=== PATIENT | male | born 1970 | race African-American/Black ===

== ENCOUNTER 2017-03-31 13:38 | Emergency (ER) | payer MEDICAID ==
[2017-03-31 13:40] VITALS: BP 163/93; PULSE 102; RESP 15; TEMP 98; O2SAT 98
--- NOTE | 2017-03-31 14:07 | PD ---
HPI Chief Complaint: Neuro Symptoms/ Deficits Time Seen by Provider: 14:05 Travel History International Travel<30 days: No Contact w/Intl Traveler<30days: No Traveled to known affect area: No History of Present Illness HPI 46 YO male presents to the ED for evaluation of ~18 month history of "head pressure," intermittent periods of "blanking out" or "spacing out" and memory problems. The patient endorses vision changes with recent diagnosis of legal blindness. He denies fever, chills, headache, neck pain, recent trauma, unilateral weakness, slurred speech, facial droop. Denies history of DM, HTN. Denies family history of PVD. Endorses distant history of alcohol and powder cocaine use. PFSH Past Medical History Headaches: Yes Respiratory: Yes Social History Alcohol Use: No Tobacco Use: No Substance Use: No Allergies-Medications (Allergen,Severity, Reaction): Coded Allergies: Contrast Media (Verified Allergy, Severe, SOB, SWELLING, 09/12/16) Iodinated Contrast Media (Verified Allergy, Severe, SOB, SWELLING, 09/12/16 ) Shellfish (Verified Allergy, Severe, LIPS SWELL, 09/12/16) Reported Meds & Prescriptions Reported Meds & Active Scripts Active Review of Systems Except as stated in HPI: all other systems reviewed are Neg Physical Exam Narrative GENERAL: Well-nourished, well-developed black male in no acute distress. SKIN: Warm and dry. HEAD: Normocephalic. Atraumatic. EYES: No scleral icterus. No injection or drainage. PERRLA. EOMI. decreased peripheral vision on testing by confrontation. ENT: [place] tympanic membranes bilaterally. Nasal mucosa is moist. Oropharynx without erythema, edema or exudate. NECK: Supple, trachea midline. No JVD or lymphadenopathy. CARDIOVASCULAR: Regular rate and rhythm without murmurs, gallops, or rubs. 2+ DP and radial pulses bilaterally. RESPIRATORY: Breath sounds clear and equal bilaterally. No accessory muscle use. GASTROINTESTINAL: Abdomen soft, non-tender, nondistended. + Bowel sounds MUSCULOSKELETAL: No cyanosis, or edema. Patient is a laboratory moves extremity spontaneously. NEUROLOGICAL: Awake and alert. Cranial nerves II through XII intact. Motor and sensory grossly within normal limits. Five out of 5 muscle strength in all muscle groups. Normal speech. BACK: Nontender without obvious deformity. No CVA tenderness. Data Data Last Documented VS Vital Signs Date Time Temp Pulse Resp B/P Pulse Ox O2 Delivery O2 Flow Rate FiO2 03/31/17 14:21 16 98 Room Air 03/31/17 13:40 98.0 102 163/93 Orders Complete Blood Count With Diff (03/31/17 14:07) Comprehensive Metabolic Panel (03/31/17 14:07) Prothrombin Time / Inr (Pt) (03/31/17 14:07) Act Partial Throm Time (Ptt) (03/31/17 14:07) Urinalysis - C+S If Indicated (03/31/17 14:07) Iv Access Insert/Monitor (03/31/17 14:07) Sodium Chloride 0.9% Flush (Ns Flush) (03/31/17 14:15) Alcohol (Ethanol) (03/31/17 14:07) Drug Screen, Random Urine (03/31/17 14:07) Ct Brain W/O Iv Contrast(Rout) (03/31/17 ) Magnesium (Mg) (03/31/17 14:07) Thyroid Stimulating Hormone (03/31/17 14:07) Labs Laboratory Tests Test 03/31/17 03/31/17 14:15 15:45 White Blood Count 3.9 TH/MM3 Red Blood Count 5.04 MIL/MM3 Hemoglobin 14.8 GM/DL Hematocrit 43.9 % Mean Corpuscular Volume 87.2 FL Mean Corpuscular Hemoglobin 29.4 PG Mean Corpuscular Hemoglobin 33.7 % Concent Red Cell Distribution Width 14.2 % Platelet Count 235 TH/MM3 Mean Platelet Volume 9.1 FL Neutrophils (%) (Auto) 50.3 % Lymphocytes (%) (Auto) 38.5 % Monocytes (%) (Auto) 9.7 % Eosinophils (%) (Auto) 0.9 % Basophils (%) (Auto) 0.6 % Neutrophils # (Auto) 1.9 TH/MM3 Lymphocytes # (Auto) 1.5 TH/MM3 Monocytes # (Auto) 0.4 TH/MM3 Eosinophils # (Auto) 0.0 TH/MM3 Basophils # (Auto) 0.0 TH/MM3 CBC Comment DIFF FINAL Differential Comment Prothrombin Time 10.6 SEC Prothromb Time International 1.0 RATIO Ratio Activated Partial 26.8 SEC Thromboplast Time Sodium Level 142 MEQ/L Potassium Level 4.0 MEQ/L Chloride Level 108 MEQ/L Carbon Dioxide Level 29.7 MEQ/L Anion Gap 4 MEQ/L Blood Urea Nitrogen 10 MG/DL Creatinine 1.16 MG/DL Estimat Glomerular Filtration 83 ML/MIN Rate Random Glucose 127 MG/DL Calcium Level 8.7 MG/DL Magnesium Level 1.9 MG/DL Total Bilirubin 0.3 MG/DL Aspartate Amino Transf 23 U/L (AST/SGOT) Alanine Aminotransferase 35 U/L (ALT/SGPT) Alkaline Phosphatase 68 U/L Total Protein 7.2 GM/DL Albumin 3.7 GM/DL Thyroid Stimulating Hormone 1.550 uIU/ML 3rd Gen Ethyl Alcohol Level LESS THAN 3 MG/DL Urine Opiates Screen NEG Urine Barbiturates Screen NEG Urine Amphetamines Screen NEG Urine Benzodiazepines Screen NEG Urine Cocaine Screen NEG Urine Cannabinoids Screen NEG MDM Medical Decision Making Medical Screen Exam Complete: Yes Emergency Medical Condition: Yes Differential Diagnosis Absence seizure versus brain mass versus epilepsy versus peripheral vascular disease versus Narrative Course 46 YO male presents to the ED for evaluation of ~18 month history of "head pressure," intermittent periods of "blanking out" or "spacing out" and memory problems. The patient endorses vision changes with recent diagnosis of legal blindness. He denies fever, chills, headache, neck pain, recent trauma, unilateral weakness, slurred speech, facial droop,history of DM, HTN, family history of PVD. Endorses distant history of alcohol and powder cocaine use. Vitals reviewed. Physical exam is reassuring. No focal neural deficits. Decreased peripheral vision on testing by confrontation. No concerning abnormalities of the CBC, CMP, Coags, UA. Tox and alcohol screen negative. CT negative for acute process. I discussed the results of workup with the patient and his . Recommended that they follow up with the primary care provider as planned, return to the ED for worsening symptoms. They indicated understanding of instructions and are agreeable to the care plan. Patient is stable and discharged home. Diagnosis Primary Impression: Spells of decreased attentiveness Additional Impression: Spells of speech arrest Referrals: Primary Care Physician Additional Instructions: Rest, hydrate. Return to normal, gentle activity as tolerated. Follow up with the primary care provider as planned. Return to the ED for any urgent or emergent medical condition. Disposition: 01 DISCHARGE HOME Condition: Stable Alix Oro Mar 31, 2017 14:07
[2017-03-31] MEDS ORDERED: SODIUM CHLORIDE 0.9% FLUSH 10 ML FLUSH IV FLUSH PRN (14:15)
[2017-03-31 14:31] LABS: AUTOMATED NEUTROPHIL # 1.9 TH/MM3 (1.8-7.7); BASOPHIL % 0.6 % (0.0-2.0); EOSINOPHIL % 0.9 % (0.0-4.0); HEMATOCRIT 43.9 % (39.0-51.0); HEMO FLAGS DIFF FINAL; LYMPH % 38.5 % (9.0-44.0); LYMPHOCYTE # 1.5 TH/MM3 (1.0-4.8); MEAN CELL VOLUME 87.2 FL (80.0-100.0); MEAN CORPUSCULAR HEMOGLOBIN 29.4 PG (27.0-34.0); MEAN CORPUSCULAR HGB CONC 33.7 % (32.0-36.0); MONO % 9.7 % (0.0-8.0); NEUT % 50.3 % (16.0-70.0); PLATELET COUNT 235 TH/MM3 (150-450); RED BLOOD COUNT 5.04 MIL/MM3 (4.50-5.90); RED CELL DISTRIBUTION WIDTH 14.2 % (11.6-17.2); WHITE BLOOD COUNT 3.9 TH/MM3 (4.0-11.0)
[2017-03-31 14:38] LABS: APTT (PATIENT) 26.8 SEC (24.3-30.1); PROTHROMBIN TIME - PATIENT 10.6 SEC (9.8-11.6)
[2017-03-31 14:47] LABS: ALT (GPT) 35 U/L (12-78); ANION GAP 4 MEQ/L (5-15); AST (GOT) 23 U/L (15-37); BICARBONATE 29.7 MEQ/L (21.0-32.0); BLOOD UREA NITROGEN 10 MG/DL (7-18); CHLORIDE 108 MEQ/L (98-107); GLOMERULAR FILTRATION RATE 83 ML/MIN (>89); MAGNESIUM 1.9 MG/DL (1.5-2.5); SODIUM (NA) 142 MEQ/L (136-145)
[2017-03-31 14:57] LABS: ALKALINE PHOSPHATASE 68 U/L (45-117); TOTAL BILIRUBIN ADULT 0.3 MG/DL (0.2-1.0)
--- NOTE | 2017-03-31 16:00 | RADRPT ---
EXAM DATE/TIME: 03/31/2017 15:26 [facility] COMPARISON: CT BRAIN W/O CONTRAST, July 02, 2012, 11:45. INDICATIONS : Left sided cephalgia, altered mental status and impaired peripheral vision today. RADIATION DOSE: 39.81 CTDIvol (mGy) MEDICAL HISTORY : None SURGICAL HISTORY : None. ENCOUNTER: Initial ACUITY: 1 day PAIN SCALE: 6/10 LOCATION: Left head TECHNIQUE: Multiple contiguous axial images were obtained of the head. Using automated exposure control and adj ustment of the mA and/or kV according to patient size, radiation dose was kept as low as reasonably a chievable to obtain optimal diagnostic quality images. DICOM format image data is available electro nically for review and comparison. FINDINGS: CEREBRUM: The ventricles are normal for age. No evidence of midline shift, mass lesion, hemorrhage or acute in farction. No extra-axial fluid collections are seen. POSTERIOR FOSSA: The cerebellum and brainstem are intact. The 4th ventricle is midline. The cerebellopontine angle i s unremarkable. EXTRACRANIAL: The visualized portion of the orbits is intact. SKULL: The calvaria is intact. No evidence of skull fracture. CONCLUSION: Normal examination. Abdi Ruelas MD on March 31, 2017 at 15:57 Board Certified Radiologist. This report was verified electronically.
[2017-03-31 16:37] LABS: AMPHETAMINE, URINE NEG (NEG); BARBITURATES, URINE NEG (NEG); COCAINE, URINE NEG (NEG)
[2017-03-31 16:42] LABS: BLOOD, URINE NEG (NEG); COMMENT (UR) CULT NOT INDICATED; CULTURE IF INDICATED CULT NOT INDICATED; GLUCOSE,URINE NEG (NEG); KETONE, URINE NEG (NEG); MUCUS URINE FEW /lpf (OCC); NITRITE,URINE NEG (NEG); SQUAMOUS EPITHELIAL CELL URINE <1 /hpf (0-5); URINE COLOR YELLOW (YELLW/STRAW)
== END 2017-03-31 16:40 | disposition home or self-care (01) ==
LOC: NEPD 13:38
DX: R41.840 Attention and concentration deficit (principal); R47.89 Other speech disturbances; R51 Headache; H54.8 Legal blindness, as defined in USA
CPT/HCPCS: 70450; 80053; 80307; 81001; 83735; 84443; 85025; 85610; 85730

== ENCOUNTER 2017-04-03 10:37 | Observation (INO) | payer MEDICAID ==
[2017-04-03] VITALS (10 sets, daily range): BP systolic 125–141; BP diastolic 66–89; PULSE 66–97; RESP 16–20; TEMP 97.7–98.9; O2SAT 96–98
[~2017-04-03] VITALS: Ht 170.2 cm; Wt 108.0 kg
[2017-04-03] MEDS ORDERED: ALBUAER3 INH (11:04)
[2017-04-03] MEDS ORDERED: SYMB160A INH (11:04)
[2017-04-03] MEDS ORDERED: SYMB80AE INH (11:04)
--- NOTE | 2017-04-03 11:15 | PD ---
HPI Chief Complaint: Seizure Time Seen by Provider: 10:54 Travel History International Travel<30 days: No Contact w/Intl Traveler<30days: No Traveled to known affect area: No History of Present Illness HPI This is a 46-year-old male with a history of diabetes mellitus, hypertension, legal blindness, who presents here with complaints of a left sided headache. The patient was seen on the of this month and told that he would likely having Seizures. At the Time of His Evaluation on the , He Was Presenting with Complaints of Episodes Where He Became Unresponsive. He Had CT Scan and Metabolic Workup at That Time It Was Essentially Negative. The Patient Reports Today That He Is Having Left Sided Headache. He Denies Any New Blurry Vision. He Denies Any Weakness of His Extremities. PFSH Past Medical History Diminished Hearing: No Headaches: Yes Neurologic: Yes (Absence seizures) Respiratory: Yes (BRONCHITIS) Seizures: Yes (Absence seizures) Tetanus Vaccination: > 5 Years Influenza Vaccination: No Past Surgical History Surgical History: No Previous Surgery Social History Alcohol Use: No Tobacco Use: No Substance Use: No (PT DENIES) Allergies-Medications (Allergen,Severity, Reaction): Coded Allergies: Contrast Media (Verified Allergy, Severe, SOB, SWELLING, 04/03/17) Iodinated Contrast Media (Verified Allergy, Severe, SOB, SWELLING, 04/03/17 ) Shellfish (Verified Allergy, Severe, LIPS SWELL, 04/03/17) Reported Meds & Prescriptions Reported Meds & Active Scripts Active Reported Symbicort Inh (Budesonide/Formoterol Fumarate) 160-4.5 Mcg/Act Aero 1 Puff INH Q12HR Proair Hfa 8.5 GM Inh (Albuterol Sulfate) 90 Mcg/Act Aer 2 Puff INH Q4-6H PRN 108 mcg/actuation Review of Systems Except as stated in HPI: all other systems reviewed are Neg Eyes: Positive: Blurred Vision, No: Photophobia HENT: Positive: Headaches, No: Neck Stiffness, Neck Pain Cardiovascular: No: Chest Pain or Discomfort, Palpitations Respiratory: No: Cough, Shortness of Breath Gastrointestinal: No: Nausea, Vomiting, Abdominal Pain Genitourinary: No: Urgency, Frequency Musculoskeletal: No: Weakness, Pain Neurologic: Positive: Headache, Change in Mentation (episodes where he does not respond but appears to be awake), No: Weakness, Dizziness, Seizures Psychiatric: No: Disorder of Thought, Substance Abuse Physical Exam Narrative GENERAL: Well-developed well-nourished male in no acute respiratory distress. SKIN: Focused skin assessment warm/dry. HEAD: Atraumatic. Normocephalic. EYES: No scleral icterus. No injection or drainage. ENT: No nasal bleeding or discharge. Mucous membranes pink and moist. NECK: Trachea midline. Supple. CARDIOVASCULAR: Regular rate and rhythm. RESPIRATORY: No accessory muscle use. Clear to auscultation. Breath sounds equal bilaterally. GASTROINTESTINAL: Abdomen soft, non-tender, nondistended. Hepatic and splenic margins not palpable. MUSCULOSKELETAL: No obvious deformities. No clubbing. No cyanosis. No edema. NEUROLOGICAL: Awake and alert. No obvious cranial nerve deficits. Motor grossly within normal limits. Normal speech. PSYCHIATRIC: Appropriate mood and affect; insight and judgment normal. Data Data Last Documented VS Vital Signs Date Time Temp Pulse Resp B/P Pulse Ox O2 Delivery O2 Flow Rate FiO2 04/03/17 12:21 66 20 132/83 98 Room Air 04/03/17 10:54 2 04/03/17 10:46 97.7 Orders Complete Blood Count With Diff (04/03/17 11:03) Basic Metabolic Panel (Bmp) (04/03/17 11:03) Ct Brain W/O Iv Contrast(Rout) (04/03/17 11:03) Iv Access Insert/Monitor (04/03/17 11:03) Ecg Monitoring (04/03/17 11:03) Oximetry (04/03/17 11:03) Labs Laboratory Tests Test 04/03/17 11:00 White Blood Count 3.7 TH/MM3 Red Blood Count 5.19 MIL/MM3 Hemoglobin 15.6 GM/DL Hematocrit 45.3 % Mean Corpuscular Volume 87.2 FL Mean Corpuscular Hemoglobin 30.0 PG Mean Corpuscular Hemoglobin 34.4 % Concent Red Cell Distribution Width 13.8 % Platelet Count 223 TH/MM3 Mean Platelet Volume 8.9 FL Neutrophils (%) (Auto) 36.8 % Lymphocytes (%) (Auto) 47.8 % Monocytes (%) (Auto) 12.6 % Eosinophils (%) (Auto) 2.0 % Basophils (%) (Auto) 0.8 % Neutrophils # (Auto) 1.4 TH/MM3 Lymphocytes # (Auto) 1.8 TH/MM3 Monocytes # (Auto) 0.5 TH/MM3 Eosinophils # (Auto) 0.1 TH/MM3 Basophils # (Auto) 0.0 TH/MM3 CBC Comment DIFF FINAL Differential Comment Sodium Level 140 MEQ/L Potassium Level 4.2 MEQ/L Chloride Level 106 MEQ/L Carbon Dioxide Level 28.4 MEQ/L Anion Gap 6 MEQ/L Blood Urea Nitrogen 17 MG/DL Creatinine 1.18 MG/DL Estimat Glomerular Filtration 81 ML/MIN Rate Random Glucose 110 MG/DL Calcium Level 8.3 MG/DL MDM Medical Decision Making Medical Screen Exam Complete: Yes Emergency Medical Condition: Yes Differential Diagnosis Migraine variant versus syncope versus absence seizures Narrative Course 46-year-old male presents after having an episode of left sided headache. The patient's had multiple episodes where he is decreased level of consciousness. The patient was given a possible diagnosis of absence seizure last visit. He has had no formal EEG. He's had no formal syncopal workup. I recommended we bring the patient under observation and have a syncope workup. I also recommend a possible EEG to rule out any abnormal wave patterns. The patient is amenable to this. He does have a history of migraine headaches for which she was taking Inderal as a young man. He states that they stopped coming on and they took him off the Inderal. He does state that the headache that he sprints today with similar to that when he had his migraines. Diagnosis Primary Impression: syncope versus atypical seizure. Additional Impression: Cephalgia Cirilo Pulido MD Apr 03, 2017 11:15
[2017-04-03 11:28] LABS: AUTOMATED NEUTROPHIL # 1.4 TH/MM3 (1.8-7.7); BASOPHIL % 0.8 % (0.0-2.0); EOSINOPHIL # 0.1 TH/MM3 (0-0.4); HEMATOCRIT 45.3 % (39.0-51.0); HEMO FLAGS DIFF FINAL; LYMPH % 47.8 % (9.0-44.0); LYMPHOCYTE # 1.8 TH/MM3 (1.0-4.8); MEAN CELL VOLUME 87.2 FL (80.0-100.0); MEAN CORPUSCULAR HGB CONC 34.4 % (32.0-36.0); MONO % 12.6 % (0.0-8.0); NEUT % 36.8 % (16.0-70.0); PLATELET COUNT 223 TH/MM3 (150-450); RED BLOOD COUNT 5.19 MIL/MM3 (4.50-5.90); RED CELL DISTRIBUTION WIDTH 13.8 % (11.6-17.2); WHITE BLOOD COUNT 3.7 TH/MM3 (4.0-11.0)
--- NOTE | 2017-04-03 11:39 | RADRPT ---
EXAM DATE/TIME: 04/03/2017 11:26 [facility] COMPARISON: CT BRAIN W/O CONTRAST, March 31, 2017, 15:26. INDICATIONS : Possible seizure. Left head presssure. RADIATION DOSE: 39.11 CTDIvol (mGy) MEDICAL HISTORY : None SURGICAL HISTORY : None. ENCOUNTER: Initial ACUITY: 1 day PAIN SCALE: 3/10 LOCATION: Left cranial TECHNIQUE: Multiple contiguous axial images were obtained of the head. Using automated exposure control and adj ustment of the mA and/or kV according to patient size, radiation dose was kept as low as reasonably a chievable to obtain optimal diagnostic quality images. DICOM format image data is available electro nically for review and comparison. FINDINGS: CEREBRUM: The ventricles are normal for age. No evidence of midline shift, mass lesion, hemorrhage or acute in farction. No extra-axial fluid collections are seen. POSTERIOR FOSSA: The cerebellum and brainstem are intact. The 4th ventricle is midline. The cerebellopontine angle i s unremarkable. EXTRACRANIAL: The visualized portion of the orbits is intact. SKULL: The calvaria is intact. No evidence of skull fracture. CONCLUSION: No acute disease. Nelson Bravo MD on April 03, 2017 at 11:36 Board Certified Radiologist. This report was verified electronically.
[2017-04-03 11:43] LABS: BICARBONATE 28.4 MEQ/L (21.0-32.0); POTASSIUM 4.2 MEQ/L (3.5-5.1)
[2017-04-03] MEDS ORDERED: SODIUM CHLORIDE 0.9% FLUSH 10 ML FLUSH IV FLUSH PRN (13:00)
[2017-04-03] MEDS ORDERED: ONDANSETRON HCL 4 MG/2 ML VIAL IVP PRN (13:00)
[2017-04-03] MEDS ORDERED: MAGNESIUM HYDROXIDE SUSP 30 ML CUP PO PRN (13:00)
[2017-04-03] MEDS ORDERED: SENNOSIDES 8.6 MG TAB PO PRN (13:00)
[2017-04-03] MEDS ORDERED: LACTULOSE SYRUP 20 GM/30 ML CUP PO PRN (13:00)
[2017-04-03] MEDS ORDERED: BISACODYL 10 MG SUPP RECTAL PRN (13:00)
[2017-04-03] MEDS ORDERED: NALOXONE HCL 0.4 MG/ML AMP IV PRN (13:00)
--- NOTE | 2017-04-03 13:20 | HHI.HP ---
[facility] Stefan [facility]anches Admission Diagnosis Diagnoses: (1) Cephalgia (2) Spells of decreased attentiveness Chief Complaint: headache, unresponsive episodes Travel History International Travel<30 Days: No Contact w/Intl Traveler <30 Da: No Traveled to Known Affected Are: No History of Present Illness Written by Bessie Farah, acting as scribe for Dr. Sanders on 04/03/17 at 13: 05. 46-year-old male with history of childhood absence seizures, migraines, asthma, presents with headache and unresponsive episodes worsening over the past year. The patient's spouse is at bedside and assists with the history. She reports recently she has witnessed the patient "staring off into space" then a few seconds later his head will collapse to the side and he will appear to be sleeping. Upon awakening, the patient is typically confused and disoriented. Denies any tongue biting or urinary/bowel incontinence. Today the patient had just finished sexual intercourse when another episode occurred. He presented to the ER with complaints of headache located at the left frontal temporal area with photophobia but no nausea/vomiting. He has a history of migraines, previously on Inderal which controlled his migraines however he has now been off this medication for years. The patient also report worsening vision, with significantly decreased peripheral vision. He has seen an assistant secretary, star route mail driver, and is now being referred to another employee training specialist. The patient also reports seeing "flashes of lights" recently that go away on its own. He denies any chest pain, palpitations, shortness of breath, unilateral numbness/weakness, speech difficulties, or abdominal complaints. Review of Systems Except as stated in HPI: all other systems reviewed are Neg Past Family Social History Past Medical History Migraines Absence seizures Asthma Legally blind with loss of peripheral vision Past Surgical History No prior surgeries. Reported Medications Symbicort Inh (Budesonide/Formoterol Fumarate) 160-4.5 Mcg/Act Aero 1 Puff INH Q12HR Proair Hfa 8.5 GM Inh (Albuterol Sulfate) 90 Mcg/Act Aer 2 Puff INH Q4-6H PRN 108 mcg/actuation Allergies: Coded Allergies: Contrast Media (Verified Allergy, Severe, SOB, SWELLING, 04/03/17) Iodinated Contrast Media (Verified Allergy, Severe, SOB, SWELLING, 04/03/17 ) Shellfish (Verified Allergy, Severe, LIPS SWELL, 04/03/17) Active Ordered Medications Current Medications Medications (Trade) Dose Ordered Sig/[place] Route Start Time Stop Time Status Last Admin (NS 1000 ml Inj) 1,000 ml @ 100 mls/hr Q10H IV 04/03/17 12:56 04/03/17 13:37 (NS Flush) 2 ml UNSCH PRN IV FLUSH 04/03/17 13:00 (NS Flush) 2 ml BID IV FLUSH 04/03/17 21:00 (Zofran Inj) 4 mg Q6H PRN IVP 04/03/17 13:00 (Narcan Inj) 0.4 mg UNSCH PRN IV 04/03/17 13:00 (Paulina-Colace) 1 tab BID PO 04/03/17 21:00 (Milk Of Magnesia Liq) 30 ml Q12H PRN PO 04/03/17 13:00 (Senokot) 17.2 mg Q12H PRN PO 04/03/17 13:00 (Dulcolax Supp) 10 mg DAILY PRN RECTAL 04/03/17 13:00 (Lactulose Liq) 30 ml DAILY PRN PO 04/03/17 13:00 Family History Mother with glaucoma Grandmother with diabetes, glaucoma Aunt, Cousin with "blood clots" Social History Smoked tobacco [employer]s cigars 15/day for 10 years, quit 2 years ago Prior heavy alcohol use, daily drinker, quit 2 years ago Denies any illicit drug use Physical Exam Vital Signs Vital Signs Date Time Temp Pulse Resp B/P Pulse Ox O2 Delivery O2 Flow Rate FiO2 04/03/17 12:21 66 20 132/83 98 Room Air 04/03/17 11:44 74 20 132/86 98 Room Air 04/03/17 11:05 17 98 Room Air 04/03/17 10:54 71 16 98 Nasal Cannula 2 04/03/17 10:46 97.7 82 16 125/72 98 Physical Exam GENERAL: Well-nourished, well-developed middle aged AA male patient in NAD. SKIN: Warm and dry. No rash. HEAD: Normocephalic. Atraumatic. EYES: Pupils equal and round. No scleral icterus. No injection or drainage. ENT: No nasal bleeding or discharge. Mucous membranes pink and moist. NECK: Supple. Trachea midline. CARDIOVASCULAR: Regular rate and rhythm. S1, S2 noted. No murmur appreciated. RESPIRATORY: No accessory muscle use. Clear to auscultation. Breath sounds equal bilaterally. GASTROINTESTINAL: Abdomen soft, non-tender, nondistended. Normoactive bowel sounds x4. MUSCULOSKELETAL: No obvious deformities. Extremities without clubbing, cyanosis , or edema. NEUROLOGICAL: Awake and alert. No obvious cranial nerve deficits. Motor grossly within normal limits. 5/5 muscle strength in bilateral upper and lower extremities. Normal speech. PSYCHIATRIC: Appropriate mood and affect; insight and judgment normal. Laboratory Laboratory Tests Test 04/03/17 11:00 White Blood Count 3.7 Red Blood Count 5.19 Hemoglobin 15.6 Hematocrit 45.3 Mean Corpuscular Volume 87.2 Mean Corpuscular Hemoglobin 30.0 Mean Corpuscular Hemoglobin 34.4 Concent Red Cell Distribution Width 13.8 Platelet Count 223 Mean Platelet Volume 8.9 Neutrophils (%) (Auto) 36.8 Lymphocytes (%) (Auto) 47.8 Monocytes (%) (Auto) 12.6 Eosinophils (%) (Auto) 2.0 Basophils (%) (Auto) 0.8 Neutrophils # (Auto) 1.4 Lymphocytes # (Auto) 1.8 Monocytes # (Auto) 0.5 Eosinophils # (Auto) 0.1 Basophils # (Auto) 0.0 CBC Comment DIFF FINAL Differential Comment Sodium Level 140 Potassium Level 4.2 Chloride Level 106 Carbon Dioxide Level 28.4 Anion Gap 6 Blood Urea Nitrogen 17 Creatinine 1.18 Estimat Glomerular Filtration 81 Rate Random Glucose 110 Calcium Level 8.3 Result Diagram: 04/03/17 1100 04/03/17 1100 Imaging Last Impressions Head CT 04/03/17 1103 Signed Impressions: Service Date/Time: Monday, April 03, 2017 11:26 - CONCLUSION: No acute disease. Nelson Bravo MD Assessment and Plan Problem List: (1) Cephalgia ICD Code: R51 Status: Acute (2) Spells of decreased attentiveness ICD Code: R68.89 Status: Acute Assessment and Plan 46-year-old male with history of childhood absence seizures, migraines, asthma, presents with headache and unresponsive episodes worsening over the past year. Headache with Neurological Deficit and Unresponsive Episodes: unclear etiology, suspect seizures, however need to rule out other etiologies including narcolepsy vs syncope vs other. -Head CT images reviewed, no acute findings -Check EEG to eval for seizures -Check Brain MRI and head/neck MRA -Consult neurology -monitor neuro checks, seizure precautions, monitor on telemetry -continue IVF -pain control with tylenol and norco prn Asthma: chronic, does not appear to be in exacerbation -continue patient's symbicort bid and albuterol prn DVT Prophylaxis: teds/SCDs This note was transcribed by [email or web address] [Bessie Farah]. I, Dr. Ryan Sanders personally performed the history, physical exam, and medical decision making; and confirmed the accuracy of the information in the transcribed note. Authenticated by Dr. Ryan Sanders on 04/03/17 at 16:02. Discussed Condition With Patient, Patient's spouse, Bessie Rodriguez PA-C Apr 03, 2017 1:20 pm Ryan Sanders MD Apr 03, 2017 4:02 pm
[2017-04-03] MEDS: SODIUM CHLOR 0.9% 1000 ML INJ 1,000 ML IV SCH ×2 (13:37→22:56)
[2017-04-03] MEDS ORDERED: ALBUTEROL SULFATE 90 MCG/ACT HFA 18 GM INHALER INH PRN (14:15)
[2017-04-03] MEDS ORDERED: ACETAMINOPHEN 325 MG TAB PO PRN (14:15)
[2017-04-03] MEDS ORDERED: ACETAMINOPHEN/HYDROcodone 325 MG/5 MG TAB PO PRN (14:15)
[2017-04-03 15:19] LABS: BLOOD GAS BASE EXCESS 2.3 mmol/L (-2-2); BLOOD GAS HCO3 27 mmol/L (22-26); BLOOD GAS METHEMOGLOBIN 0.9 % (0-2); BLOOD GAS O2 HGB SATURATION 93 % (90-100); BLOOD GAS OXYGEN CONTENT 19.5 Vol % (12.0-20.0); BLOOD GAS PCO2 45 mmHg (38-42); BLOOD GAS PO2 76 mmHG (61-120); BLOOD GAS TOTAL HGB 14.9 G/DL (12.0-16.0); CRITICAL VALUE NO; DRAW SITE LT RADIAL; FIO2 21 %; NUMBER OF ARTERIAL PUNCTURES 1; STAT NO; TEMP CORR TO 98.6; ULNAR PULSE PRESENT
--- NOTE | 2017-04-03 18:07 | MB ---
cc: PEDRO MIRANDA DATE OF CONSULTATION: 04/03/2017 HISTORY OF PRESENT ILLNESS A 46-year-old right-handed man with some hypercholesterolemia, a long history of headaches when he was younger which seemed to go away on Inderal but came back about two years ago. He has what sounds like excessive daytime sleepiness, possibly some narcolepsy where he will fall asleep very easily, he cannot even watch a 30-minute TV show. Other times he seems to stare off about three times a day according to his , and that has been going on for several years but seems to be getting worse. When she first met him two years ago it seemed to be not so frequent. He has headaches almost everyday which are mild on the left side of his head and then occasionally get worse to be about a 7/10 with throbbing and some floaters, no nausea or vomiting. Those have come back about two years ago also. He is a very heavy snorer. He has had some vision loss where he is legally blind. Peripheral vision appears to have diminished. He did see an eye doctor and he is not sure what the diagnosis is but he is supposed to see an artificial intelligence specialist. He has some prescription glasses. He does notice at times he seems to lose a period of time. SOCIAL HISTORY He is not a smoker or a drinker. He quit about two years ago. Lives with his . He used to work construction. He is possibly disabled due to knee pain, chronic. FAMILY HISTORY Negative for cancer, seizure or stroke. REVIEW OF SYSTEMS He denied any hypertension, diabetes, AK, CABG, cardiac arrhythmia, stent, angioplasty, a-fib, Coumadin, renal, hepatic or pulmonary disease, thyroid disease, lupus, ulcer, cancer, seizure or stroke. ALLERGIES HE IS ALLERGIC TO CONTRAST MEDIA, IODINE, SHELLFISH. MEDICATIONS He is on Symbicort and some inhalers. History of bronchitis. PHYSICAL EXAMINATION VITAL SIGNS: 141/89, 20, 80, afebrile. NECK: There were no carotid bruits. HEART: Heart was regular rhythm. I did not detect a murmur. NEUROLOGIC: The pupils are equal. Visual begum - he does appear to be somewhat restricted peripherally but can count fingers more centrally. It looks like he has got a little bit of a strabismus on the left eye but with an inward inversion of the eye. Extraocular movements are intact without nystagmus. Face was symmetric with normal sensation. Tongue was midline. There is no drift. He had normal strength in upper and lower extremities bilaterally. DTRs are trace throughout. Toes downgoing bilaterally. Pinprick is intact throughout. He is not ataxic on [id number]. Speech is fluent. He is not aphasic, gives a good history. LABORATORY DATA CBC has been essentially normal, white count is 3.7. Urine drug screen is normal. UA was negative. Basic metabolic profile has been essentially normal except for a sugar of 110, calcium is low at 8.3. He had a CPK to 640 about a year ago. LDL cholesterol 153 approximately a year ago. Thyroid study normal here. Coags normal. IMAGING CAT scan of the brain done today was read as normal. IMPRESSION Probably it sounds like a history of migraine headaches. We can restart him on the Inderal which may help his high blood pressure a little bit. We will check some blood work and an EEG along with an MRI of the brain and an MR venogram and an MRA with the headaches. I think he may have sleep apnea, he needs a sleep study done, he might also have some narcolepsy. There is a slight hypodensity I note in the right frontal lobe peripherally although this may be an artifact, we will see how the MRI looks. We could consider having ophthalmology see him here. His pupils were so small I could not really see his disks well, and we need to make sure he does not have any papilledema causing his vision loss. As such he could use his eyes dilated here for that means, if we could get ophthalmology to stop by I think that would be a good thing. MD AMINAH Liu/BJNicole /2:49 PM /5:41 PM
--- NOTE | 2017-04-03 18:08 | RADRPT ---
EXAM DATE/TIME: 04/03/2017 17:39 [facility] COMPARISON: No previous studies available for comparison. INDICATIONS : Cephalgia. Seizures. Syncope. MEDICAL HISTORY : Diabetes mellitus type 2. Hypertension. SURGICAL HISTORY : None. ENCOUNTER: Subsequent ACUITY: 2 day PAIN SCORE: 0/10 LOCATION: head. Please note a normal MRA of the brain does not entirely exclude the possibility of a small aneurysm, nor the possibility of distal intracranial vessel disease. TECHNIQUE: MR venography of the brain was performed without contrast with multiplanar and 3D reconstructions. FINDINGS: The dural sinuses are patent and normal in appearance. The deep cerebral venous structures are patent and unremarkable. Major cortical surface veins are symmetric and patent. CONCLUSION: Normal study Abdi Cardenas MD on April 03, 2017 at 18:05 Board Certified Radiologist. This report was verified electronically.
--- NOTE | 2017-04-03 18:12 | RADRPT ---
EXAM DATE/TIME: 04/03/2017 17:39 [facility] COMPARISON: No previous studies available for comparison. INDICATIONS : Cephalgia. Seizure. Syncope. MEDICAL HISTORY : Diabetes mellitus type 2. Hypertension. SURGICAL HISTORY : None. ENCOUNTER: Subsequent ACUITY: 2 day PAIN SCORE: 0/10 LOCATION: head. Please note a normal MRA of the brain does not entirely exclude the possibility of a small aneurysm, nor the possibility of distal intracranial vessel disease. TECHNIQUE: 3D time of flight MRA was performed. Source images, multiplanar STS MIP, and 3D volume MIP reconstru ctions were reviewed. FINDINGS: There is excellent visualization of the major intracranial arteries out to the second-order branch ve ssels. There is no evidence for aneurysm, vessel truncation or stenosis, and no evidence for vascula r malformation. CONCLUSION: Normal examination. Abdi Cardenas MD on April 03, 2017 at 18:06 Board Certified Radiologist. This report was verified electronically.
[2017-04-03] MEDS ORDERED: GADODIAMIDE PF 287 MG/ML 20 ML VIAL (for RAD MRI) IV ONE (18:18)
--- NOTE | 2017-04-03 18:22 | RADRPT ---
EXAM DATE/TIME: 04/03/2017 17:39 [facility] COMPARISON: No previous studies available for comparison. INDICATIONS : Stenosis. CONTRAST: 20 cc Omniscan (gadodiamide) IV MEDICAL HISTORY : Diabetes mellitus type 2. Hypertension. SURGICAL HISTORY : None. ENCOUNTER: Subsequent ACUITY: 2 day PAIN SCORE: 0/10 LOCATION: neck. Percent stenosis is calculated using the diameter of the stenotic region over the diameter of the nor mal distal internal carotid artery. TECHNIQUE: Bolus infused MRA of the extracranial circulation was performed using a neurovascular coil. Post pro cessing was performed including rotating subvolume maximum intensity projections of each carotid geoff ry, rotating full volume maximum intensity projections of both carotid arteries, sagittal and coronal sliding thin slab reformations of each carotid artery, and left oblique sliding thin slab reformatio n through the aortic arch to include the origin of the arch branch vessels. FINDINGS: AORTIC ARCH: There is a three vessel origin of the great vessels from the aorta. No evidence of ostial narrowing. RIGHT CAROTID: The common carotid artery is intact. The carotid bulb has a normal configuration without ulceration or narrowing. The internal carotid artery lumen is smooth without stenosis. The external carotid ar mahendra is intact. LEFT CAROTID: The common carotid artery is intact. The carotid bulb has a normal configuration without ulceration or narrowing. The internal carotid artery lumen is smooth without stenosis. The external carotid ar mahendra is intact. VERTEBRALS: The vertebral arteries have a symmetric diameter. No stenotic lesions are seen. CONCLUSION: Normal examination. Abdi Cardenas MD on April 03, 2017 at 18:19 Board Certified Radiologist. This report was verified electronically.
--- NOTE | 2017-04-03 18:25 | RADRPT ---
EXAM DATE/TIME: 04/03/2017 17:39 [facility] COMPARISON: CT BRAIN W/O CONTRAST, April 03, 2017, 11:26. INDICATIONS : Cephalgia. Seizures. Syncope. CONTRAST: 20 cc Omniscan (gadodiamide) IV MEDICAL HISTORY : Diabetes mellitus type 2. Hypertension. SURGICAL HISTORY : None. ENCOUNTER: Subsequent ACUITY: 2 day PAIN SCORE: 0/10 LOCATION: head. TECHNIQUE: Multiplanar, multisequence MRI of the brain was performed both prior to and following the administrat ion of paramagnetic contrast. FINDINGS: CEREBRUM: The ventricles are normal for age. No evidence of midline shift, mass lesion, hemorrhage or acute in farction. No extraaxial fluid collections are seen. The pituitary gland and suprasellar cistern are normal in configuration. WHITE MATTER: No significant signal abnormalities are seen in the white matter. POSTERIOR FOSSA: The cerebellum and brainstem are intact. The 4th ventricle is midline. The cerebellopontine angle is unremarkable. The cerebellar tonsils are normal in position. DIFFUSION IMAGING: No focal areas of restricted diffusion are seen. No evidence of acute infarction. EXTRACRANIAL: The visualized portions of the orbits and paranasal sinuses are unremarkable. POST-CONTRAST: No abnormal areas of parenchymal or dural enhancement. No evidence of blood-brain barrier breakdown. CONCLUSION: Unremarkable exam with no evidence of hemorrhage, mass or infarction. Shelton Jalloh MD on April 03, 2017 at 18:21 Board Certified Radiologist. This report was verified electronically.
--- NOTE | 2017-04-03 19:19 | MG ---
cc: BARBARA CHADWICK M.D. Lab No: Date: 04/03/2017 Age: Sex: M Race: REQUESTING PHYSICIAN KATHY Ortez INTRODUCTION An EEG was obtained on this 46-year-old patient being evaluated for headaches and possible seizures. DESCRIPTION The patient is awake and asleep. This EEG shows alpha rhythms intermixed with beta activity bilaterally. There are some theta rhythms also bilaterally and some delta activity as well. At times the activity is intermixed with some sharp waves and this is maximum on the right. Intermittently there is sleep with sleepy spindles. There appears to be a rather quick entrance into sleep. When the patient is clearly fully awake there is still some mild theta activity but not as much. Photic stimulation and hyperventilation disclosed no change. INTERPRETATION This EEG shows mild slowing for the patient's age and this seems to be maximum on the right raising the possibility of right hemisphere structural abnormality. There are no epileptiform features in a distinct manner, though there are some sharp waves on the right more than left. Clinical correlation. Barbara Chadwick MD OFC/KK /6:52 PM /7:16 PM
[2017-04-03 21:28] LABS: HEMOGLOBIN A1b 0.9 %; HEMOGLOBIN Ao 84.9 %; HEMOGLOBIN P3 3.6 %
[2017-04-03] MEDS: BUDESONIDE-FORMOTEROL 160/4.5 MCG INHALER INH SCH (22:11)
[2017-04-03] MEDS: DOCUSATE SODIUM 50 MG/SENNA 8.6 MG TAB PO SCH (22:12)
[2017-04-03] MEDS: SODIUM CHLORIDE 0.9% FLUSH 10 ML FLUSH IV FLUSH SCH (22:13)
[2017-04-03] MEDS: DIVALPROEX SODIUM E.R. 500 MG TAB PO SCH (22:18)
[2017-04-03 22:35] LABS: TOTAL PROTEIN SPE 6.4 GM/DL (6.0-7.6)
[2017-04-03 22:48] LABS: CKMB 4.8 NG/ML (0.5-3.6)
[2017-04-04] VITALS (11 sets, daily range): BP systolic 114–138; BP diastolic 58–91; PULSE 59–87; RESP 16–20; TEMP 98–98.6; O2SAT 96–99
[2017-04-04 00:45] LABS: RHEUMATOID FACTOR TRIGGER LESS THAN 10.0 IU/ML (0.0-14.9)
[2017-04-04] MEDS: BUDESONIDE-FORMOTEROL 160/4.5 MCG INHALER INH SCH ×2 (07:32→21:46)
[2017-04-04] MEDS: SODIUM CHLOR 0.9% 1000 ML INJ 1,000 ML IV SCH ×2 (07:34→18:24)
[2017-04-04] MEDS: SODIUM CHLORIDE 0.9% FLUSH 10 ML FLUSH IV FLUSH SCH ×2 (07:35→21:00)
[2017-04-04] MEDS: DOCUSATE SODIUM 50 MG/SENNA 8.6 MG TAB PO SCH ×2 (07:35→21:46)
--- NOTE | 2017-04-04 08:12 | EKG ---
Date Performed: 04/03/2017 Time Performed: 10:50:34 PTAGE: 46 years EKG: Sinus rhythm WITH SINUS ARRHYTHMIA NORMAL ECG INTERPRETATION BASED ON A DEFAULT AGE OF 42 YEARS PREVIOUS TRACING : 01/21/2016 10.14 DOCTOR: Morro Guthrie Interpretating Date/Time 04/04/2017 08:05:07
[2017-04-04 08:19] LABS: AUTOMATED NEUTROPHIL # 1.1 TH/MM3 (1.8-7.7); BASOPHIL % 0.5 % (0.0-2.0); EOSINOPHIL # 0.1 TH/MM3 (0-0.4); EOSINOPHIL % 1.9 % (0.0-4.0); HEMATOCRIT 44.3 % (39.0-51.0); HEMO FLAGS DIFF FINAL; LYMPH % 60.2 % (9.0-44.0); LYMPHOCYTE # 2.6 TH/MM3 (1.0-4.8); MEAN CELL VOLUME 89.4 FL (80.0-100.0); MEAN CORPUSCULAR HEMOGLOBIN 28.6 PG (27.0-34.0); MONO % 11.3 % (0.0-8.0); NEUT % 26.1 % (16.0-70.0); PLATELET COUNT 192 TH/MM3 (150-450); RED BLOOD COUNT 4.95 MIL/MM3 (4.50-5.90); RED CELL DISTRIBUTION WIDTH 14.2 % (11.6-17.2); WHITE BLOOD COUNT 4.3 TH/MM3 (4.0-11.0)
--- NOTE | 2017-04-04 08:24 | HHI.PR ---
Subjective Remarks few spells yest of loc brief he has some awareness of it i started vpa last pm Objective Vital Signs Date Time Temp Pulse Resp B/P Pulse Ox O2 Delivery O2 Flow Rate FiO2 04/04/17 08:17 98.6 79 18 138/91 97 04/04/17 04:14 59 04/04/17 04:00 98.0 66 20 118/76 99 04/04/17 00:06 67 04/04/17 00:00 98.1 77 20 124/75 97 04/03/17 20:02 98.9 81 16 136/78 96 04/03/17 20:01 78 04/03/17 17:33 97 04/03/17 16:14 88 04/03/17 13:50 80 20 141/89 98 04/03/17 13:39 77 22 140/66 98 04/03/17 12:21 66 20 132/83 98 Room Air 04/03/17 11:44 74 20 132/86 98 Room Air 04/03/17 11:05 17 98 Room Air 04/03/17 10:54 71 16 98 Nasal Cannula 2 04/03/17 10:46 97.7 82 16 125/72 98 I/O 04/03/17 04/03/17 04/03/17 04/04/17 04/04/17 04/04/17 07:00 15:00 23:00 07:00 15:00 23:00 Intake Total 240 ml 220 ml Balance 240 ml 220 ml Intake Oral 240 ml 220 ml # Voids 2 # Bowel Movements 0 Result Diagram: 04/03/17 1100 04/03/17 1100 Objective Remarks awake alert nad minimal lyle Assessment and Plan Assessment and Plan imp mri /a/a/v nl eeg some r>left sharps on report labs ok x b12 shot few spells yest of loc brief so i started vpa or migraine and possible sz check level have optho see probable dc in am o/p sleep study stay away from narcotics for lyle vpa good for migraines i dw him Rory Sanchez MD Apr 04, 2017 08:24
[2017-04-04 08:51] LABS: BICARBONATE 29.8 MEQ/L (21.0-32.0); POTASSIUM 4.2 MEQ/L (3.5-5.1)
[2017-04-04 08:55] LABS: HDL CHOLESTEROL 45.3 MG/DL (40.0-60.0)
[2017-04-04 09:33] LABS: RAPID PLASMA REAGIN SCREEN NON-REACTIVE (NON-REACTVE)
[2017-04-04] MEDS ORDERED: CYANOCOBALAMIN 1000 MCG/ML VIAL SQ SCH (10:00)
--- NOTE | 2017-04-04 15:02 | HHI.PR ---
Subjective Remarks Slight atypical changes on EEG. No structural abnormalities on MRI or MRA. Carotid arteries are patent. Depakote has been started as a treatment by neurology. Monitor Depakote levels tomorrow morning. Ophthalmology evaluation pending. Objective Vital Signs Date Time Temp Pulse Resp B/P Pulse Ox O2 Delivery O2 Flow Rate FiO2 04/04/17 13:29 98.3 70 18 125/76 97 04/04/17 08:17 98.6 79 18 138/91 97 04/04/17 08:00 87 04/04/17 04:14 59 04/04/17 04:00 98.0 66 20 118/76 99 04/04/17 00:06 67 04/04/17 00:00 98.1 77 20 124/75 97 04/03/17 20:02 98.9 81 16 136/78 96 04/03/17 20:01 78 04/03/17 17:33 97 04/03/17 16:14 88 I/O 04/03/17 04/03/17 04/03/17 04/04/17 04/04/17 04/04/17 07:00 15:00 23:00 07:00 15:00 23:00 Intake Total 240 ml 220 ml 800 ml Balance 240 ml 220 ml 800 ml Intake Oral 240 ml 220 ml IV Total 800 ml # Voids 2 # Bowel Movements 0 Result Diagram: 04/04/17 0600 04/04/17 0600 Imaging Last Impressions Brain MRI 04/03/17 1448 Signed Impressions: Service Date/Time: Monday, April 03, 2017 17:39 - CONCLUSION: Unremarkable exam with no evidence of hemorrhage, mass or infarction. Shelton Jalloh MD Head CT 04/03/17 1103 Signed Impressions: Service Date/Time: Monday, April 03, 2017 11:26 - CONCLUSION: No acute disease. Nelson Bravo MD Neck Magnetic Resonance Angiography 04/03/17 0000 Signed Impressions: Service Date/Time: Monday, April 03, 2017 17:39 - CONCLUSION: Normal examination. Abdi Cardenas MD Head/Brain Mag Res Venography 04/03/17 0000 Signed Impressions: Service Date/Time: Monday, April 03, 2017 17:39 - CONCLUSION: Normal study Abdi Cardenas MD Head Magnetic Resonance Angiography 04/03/17 0000 Signed Impressions: Service Date/Time: Monday, April 03, 2017 17:39 - CONCLUSION: Normal examination. Abdi Cardenas MD Objective Remarks GENERAL: NAD, A&Ox3 HEAD: Normocephalic. NECK: Supple, trachea midline. No lymphadenopathy. EYES: No scleral icterus. No injection or drainage. CARDIOVASCULAR: Regular rate and rhythm without murmurs, gallops, or rubs. RESPIRATORY: Breath sounds equal bilaterally. No accessory muscle use. GASTROINTESTINAL: Abdomen soft, non-tender, nondistended. MUSCULOSKELETAL: No cyanosis, or edema. SKIN: Warm and dry. NEURO: No focal neurological deficitis. Peripheral vision loss. Medications and IVs Administered Medications Medications (Trade) Dose Ordered Sig/Kameron Route PRN Reason Start Time Stop Time Status Last Admin Dose Admin Sodium Chloride (NS 1000 ml Inj) 1,000 ml @ 100 mls/hr Q10H IV 04/03/17 12:56 04/04/17 07:34 Sodium Chloride (NS Flush) 2 ml BID IV FLUSH 04/03/17 21:00 04/04/17 07:35 Senna/Docusate Sodium (Paulina-Colace) 1 tab BID PO 04/03/17 21:00 04/03/17 22:12 Budesonide/ Formoterol Fumarate (Symbicort 160-4.5 Inh) 1 puff Q12HR INH 04/03/17 21:00 04/04/17 07:32 Acetaminophen (Tylenol) 650 mg Q6H PRN PO headache/fever/pain1-2 04/03/17 14:15 04/04/17 11:06 Divalproex Sodium (Depakote Er) 500 mg HS PO 04/03/17 22:10 04/03/17 22:18 Cyanocobalamin (Vitamin B12 Inj) 1,000 mcg Q30D SQ 04/04/17 10:00 04/04/17 09:51 A/P Problem List: (1) Cephalgia ICD Code: R51 (2) Spells of decreased attentiveness ICD Code: R68.89 (3) Vision loss ICD Code: H54.7 (4) Peripheral vision loss ICD Code: H53.459 (5) Spells of speech arrest ICD Code: R47.89 Assessment and Plan Assessment and Plan 46-year-old male with history of childhood absence seizures, migraines, asthma, presents with headache and unresponsive episodes worsening over the past year. Headache Absent/atypical seizures Depakote started EEG was slightly abnormal MRI and MRA of the brain/neck are within normal limits Neurology following [place] for pain Peripheral vision loss Ophthalmology consult Etiology uncertain No evidence of occipital CVA on MRI of brain Asthma No exacerbation Symbicort twice a day Albuterol as needed DVT Prophylaxis SCDs Ryan Sanders MD Apr 04, 2017 15:02
--- NOTE | 2017-04-04 18:14 | PD.CONS ---
History of Present Illness Service Ophthalmology Consult Requested By Neurology - Reason for Consult rule out optic disc edema Primary Care Physician Stefan Sanches Diagnoses: History of Present Illness 46-year-old male with history of childhood absence seizures, migraines, asthma, presents with headache and unresponsive episodes worsening over the past year. The patient also reports worsening vision, with significantly decreased peripheral vision happening gradually over a long period of time. He saw Dr. Harish Benito (carburetor rebuilder) who diagnosed him with glaucoma. He is schedule to see ([facility]). Neurology asked me to see patient to rule out optic disc edema. Patient states his vision has not changed significantly recently. Past Family Social History Allergies: Coded Allergies: Contrast Media (Verified Allergy, Severe, SOB, SWELLING, 04/03/17) Iodinated Contrast Media (Verified Allergy, Severe, SOB, SWELLING, 04/03/17 ) Shellfish (Verified Allergy, Severe, LIPS SWELL, 04/03/17) Physical Exam Vital Signs Vital Signs Date Time Temp Pulse Resp B/P Pulse Ox O2 Delivery O2 Flow Rate FiO2 04/04/17 16:23 98.3 81 16 116/60 97 04/04/17 13:29 98.3 70 18 125/76 97 04/04/17 08:17 98.6 79 18 138/91 97 04/04/17 08:00 87 04/04/17 04:14 59 04/04/17 04:00 98.0 66 20 118/76 99 04/04/17 00:06 67 04/04/17 00:00 98.1 77 20 124/75 97 04/03/17 20:02 98.9 81 16 136/78 96 04/03/17 20:01 78 Physical Exam Va cc at near OD 20/800, OS 20/800 EOM full OU, no diplopia CVF decreased OU Pupils 2-1 no APD OU IOP 18, 17 mm Hg Anterior exam OD - normal eyelid, C/S W&Q, K clear, AC deep, pupil round, lens clear OS - normal eyelid, C/S W&Q, K clear, AC deep, pupil round, lens clear Dilated exam OD - ON s/p/f, C:D 0.8, ves normal, vit clear, retina flat OS - ON s/p/f, C:D 0.8, ves normal, vit clear, retina flat Laboratory Laboratory Tests Test 04/03/17 04/04/17 21:20 06:00 Erythrocyte Sedimentation Rate 1 Ammonia 45 Total Creatine Kinase 708 Creatine Kinase MB 4.8 Creatine Kinase MB % 0.7 C-Reactive Protein 0.84 Total Protein 6.4 Vitamin B12 Level 250 Folate 10.3 Rheumatoid Factor Screen NEGATIVE Rheumatoid Factor Titer Rapid Plasma Reagin NON-REACTIVE White Blood Count 4.3 Red Blood Count 4.95 Hemoglobin 14.2 Hematocrit 44.3 Mean Corpuscular Volume 89.4 Mean Corpuscular Hemoglobin 28.6 Mean Corpuscular Hemoglobin 32.0 Concent Red Cell Distribution Width 14.2 Platelet Count 192 Mean Platelet Volume 9.0 Neutrophils (%) (Auto) 26.1 Lymphocytes (%) (Auto) 60.2 Monocytes (%) (Auto) 11.3 Eosinophils (%) (Auto) 1.9 Basophils (%) (Auto) 0.5 Neutrophils # (Auto) 1.1 Lymphocytes # (Auto) 2.6 Monocytes # (Auto) 0.5 Eosinophils # (Auto) 0.1 Basophils # (Auto) 0.0 CBC Comment DIFF FINAL Differential Comment Sodium Level 141 Potassium Level 4.2 Chloride Level 105 Carbon Dioxide Level 29.8 Anion Gap 6 Blood Urea Nitrogen 12 Creatinine 1.08 Estimat Glomerular Filtration 90 Rate Random Glucose 97 Calcium Level 8.4 Triglycerides Level 120 Cholesterol Level 220 LDL Cholesterol 151 HDL Cholesterol 45.3 Cholesterol/HDL Ratio 4.85 Valproic Acid (Depakene) Level 13 Result Diagram: 04/04/17 0600 04/04/17 0600 Assessment and Plan Problem List: (1) Peripheral vision loss Status: Acute Plan: Secondary to glaucoma, per his outpatient carburetor rebuilder. No optic disc edema on exam. Follow up with outpatient ophthalmology as scheduled. Yarelis Sheppard MD Apr 04, 2017 18:14
[2017-04-04] MEDS: DIVALPROEX SODIUM E.R. 500 MG TAB PO SCH (21:46)
[2017-04-04 22:30] LABS: ALBUMIN SPE 4.09 GM/DL (3.50-5.00); ALPHA 1 GLOBULIN 0.13 GM/DL (0.11-0.29); ALPHA 2 GLOBULIN 0.52 GM/DL (0.22-1.00); BETA GLOBULINS (SPE) 0.63 GM/DL (0.53-1.03)
[2017-04-05 00:05] VITALS: PULSE 77
[2017-04-05 04:00] VITALS: PULSE 71
[2017-04-05 04:02] VITALS: BP 118/56; PULSE 80; RESP 18; TEMP 98.3; O2SAT 95
[2017-04-05] MEDS: SODIUM CHLOR 0.9% 1000 ML INJ 1,000 ML IV SCH (04:56)
[2017-04-05 07:27] VITALS: BP 120/69; PULSE 78; RESP 16; TEMP 98.2; O2SAT 96
[2017-04-05 07:51] VITALS: PULSE 67
[2017-04-05] MEDS: BUDESONIDE-FORMOTEROL 160/4.5 MCG INHALER INH SCH (08:30)
[2017-04-05] MEDS: DOCUSATE SODIUM 50 MG/SENNA 8.6 MG TAB PO SCH (08:30)
[2017-04-05] MEDS: SODIUM CHLORIDE 0.9% FLUSH 10 ML FLUSH IV FLUSH SCH (08:30)
--- NOTE | 2017-04-05 08:59 | HHI.PR ---
Subjective Remarks fno more spells opn vpa level pend Objective Vital Signs Date Time Temp Pulse Resp B/P Pulse Ox O2 Delivery O2 Flow Rate FiO2 04/05/17 07:27 98.2 78 16 120/69 96 04/05/17 04:02 98.3 80 18 118/56 95 04/05/17 04:00 71 04/05/17 00:05 77 04/04/17 23:57 98.3 72 18 114/58 96 04/04/17 21:00 80 04/04/17 19:52 98.2 86 18 125/71 96 04/04/17 16:23 98.3 81 16 116/60 97 04/04/17 13:29 98.3 70 18 125/76 97 I/O 04/04/17 04/04/17 04/04/17 04/05/17 04/05/17 04/05/17 07:00 15:00 23:00 07:00 15:00 23:00 Intake Total 220 ml 800 ml Balance 220 ml 800 ml Intake Oral 220 ml IV Total 800 ml # Voids 2 2 # Bowel Movements 0 Result Diagram: 04/04/17 0600 04/04/17 0600 Objective Remarks awake alert nad minimal lyle Assessment and Plan Assessment and Plan imp mri /a/a/v nl eeg some r>left sharps on report labs ok x b12 shot few spells yest of loc brief so i started vpa or migraine and possible sz check level have optho see probable dc in am o/p sleep study stay away from narcotics for lyle vpa good for migraines i dw him 04/05/17 vpa level pend vision loss from glaucoma mild lyle fu level could dc call me with level b4 dc Rory Sanchez MD Apr 05, 2017 08:59
[2017-04-05 11:24] LABS: ANA SCREEN NEG (NEG)
[2017-04-05] MEDS ORDERED: DEPA500T3 PO (12:13)
[2017-04-05] MEDS ORDERED: BUTA1CAP PO (12:13)
[2017-04-05 12:19] VITALS: BP 119/72; PULSE 83; RESP 14; TEMP 98; O2SAT 97
--- NOTE | 2017-04-05 12:21 | HHI.DS ---
Discharge Summary Admission Date Apr 03, 2017 at 1:03 pm Discharge Date: Apr 05, 2017 Admitting Diagnosis (1) Cephalgia ICD Code: R51 (2) Spells of decreased attentiveness ICD Code: R68.89 Diagnosis: Principal Procedures None Brief History - From Admission Written by Bessie Farah, acting as scribe for Dr. Sanders on 04/03/17 at 13: 05. 46-year-old male with history of childhood absence seizures, migraines, asthma, presents with headache and unresponsive episodes worsening over the past year. The patient's spouse is at bedside and assists with the history. She reports recently she has witnessed the patient "staring off into space" then a few seconds later his head will collapse to the side and he will appear to be sleeping. Upon awakening, the patient is typically confused and disoriented. Denies any tongue biting or urinary/bowel incontinence. Today the patient had just finished sexual intercourse when another episode occurred. He presented to the ER with complaints of headache located at the left frontal temporal area with photophobia but no nausea/vomiting. He has a history of migraines, previously on Inderal which controlled his migraines however he has now been off this medication for years. The patient also report worsening vision, with significantly decreased peripheral vision. He has seen an franchise manager, dry molder, and is now being referred to another student finance specialist. The patient also reports seeing "flashes of lights" recently that go away on its own. He denies any chest pain, palpitations, shortness of breath, unilateral numbness/weakness, speech difficulties, or abdominal complaints. CBC/BMP: 04/04/17 0600 04/04/17 0600 Significant Findings Laboratory Tests Test 04/03/17 04/03/17 04/03/17 04/04/17 11:00 15:08 21:20 06:00 White Blood Count 3.7 TH/MM3 (4.0-11.0) Lymphocytes (%) (Auto) 47.8 % 60.2 % (9.0-44.0) (9.0-44.0) Monocytes (%) (Auto) 12.6 % 11.3 % (0.0-8.0) (0.0-8.0) Neutrophils # (Auto) 1.4 TH/MM3 1.1 TH/MM3 (1.8-7.7) (1.8-7.7) Estimat Glomerular Filtration 81 ML/MIN (>89) Rate Random Glucose 110 MG/DL (74-106) Hemoglobin A1c 6.2 % (4.3-6.0) Calcium Level 8.3 MG/DL 8.4 MG/DL (8.5-10.1) (8.5-10.1) Blood Gas HCO3 27 mmol/L (22-26) Blood Gas Base Excess 2.3 mmol/L (-2-2) Arterial Blood Partial 45 mmHg (38-42) Pressure CO2 Ammonia 45 MCMOL/L (11-32) Total Creatine Kinase 708 U/L (39-308) Creatine Kinase MB 4.8 NG/ML (0.5-3.6) C-Reactive Protein 0.84 MG/DL (0.00-0.30) Cholesterol Level 220 MG/DL (120-200) LDL Cholesterol 151 MG/DL (0-99) Valproic Acid (Depakene) Level 13 MCG/ML (50-100) Test 04/05/17 08:09 Valproic Acid (Depakene) Level 32 MCG/ML (50-100) Imaging Last Impressions Brain MRI 04/03/17 1448 Signed Impressions: Service Date/Time: Monday, April 03, 2017 17:39 - CONCLUSION: Unremarkable exam with no evidence of hemorrhage, mass or infarction. Shelton Jalloh MD Head CT 04/03/17 1103 Signed Impressions: Service Date/Time: Monday, April 03, 2017 11:26 - CONCLUSION: No acute disease. Nelson Bravo MD Neck Magnetic Resonance Angiography 04/03/17 0000 Signed Impressions: Service Date/Time: Monday, April 03, 2017 17:39 - CONCLUSION: Normal examination. Abdi Cardenas MD Head/Brain Mag Res Venography 04/03/17 0000 Signed Impressions: Service Date/Time: Monday, April 03, 2017 17:39 - CONCLUSION: Normal study Abdi Cardenas MD Head Magnetic Resonance Angiography 04/03/17 0000 Signed Impressions: Service Date/Time: Monday, April 03, 2017 17:39 - CONCLUSION: Normal examination. Abdi Cardenas MD PE at Discharge GENERAL: NAD, A&Ox3 HEAD: Normocephalic. NECK: Supple, trachea midline. No lymphadenopathy. EYES: No scleral icterus. No injection or drainage. CARDIOVASCULAR: Regular rate and rhythm without murmurs, gallops, or rubs. RESPIRATORY: Breath sounds equal bilaterally. No accessory muscle use. GASTROINTESTINAL: Abdomen soft, non-tender, nondistended. MUSCULOSKELETAL: No cyanosis, or edema. SKIN: Warm and dry. NEURO: No focal neurological deficitis. Tunnel vision Hospital Course Mr. Genao is a 46-year-old male. He was admitted on observation status secondary to episodes of absence Seizure. Depakote was started and his seizures have improved. EEG revealed an atypical pattern but not a specific pattern. She also has gradual vision loss. Ophthalmology exam suggests glaucoma. No retinal edema was seen and given we cannot obtain records from his outpatient dry molder treatment is deferred to outpatient ophthalmology. Patient is encouraged to visit with his outpatient dry molder soon to start treatment if indicated. Depakote levels increasing. He has not yet therapeutic but he is stable for discharge home with outpatient Depakote level checked. He'll follow as an outpatient with neurology. Medically stable for discharge today. Pt Condition on Discharge: Stable Discharge Disposition: Discharge Home Discharge Time: <= 30 minutes Discharge Instructions DIET: Follow Instructions for: As Tolerated, No Restrictions Activities you can perform: Regular-No Restrictions Follow up Referrals: Neurology - 2 Weeks with Rory Sanchez MD PCP Follow-up - 1 Week New Medications: Kfkibndqub-Smodyotmaewqv-Zhhowave (Fioricet) 50-300-40 Mg Cap 1 CAP PO DAILY PRN HEADACHE #7 Ref 0 CAP Divalproex ER (Depakote ER) 500 Mg Manuel 500 MG PO HS Seizure Control #30 TAB Continued Medications: Albuterol 8.5 GM Inh (Proair Hfa 8.5 GM Inh) 90 Mcg/Act Aer 2 PUFF INH Q4-6H 108 mcg/actuation PRN SHORTNESS OF BREATH #1 Ref 0 INHALER Budesonide-Formoterol Inh (Symbicort Inh) 160-4.5 Mcg/Act Aero 1 PUFF INH Q12HR #1 Ref 0 INHALER Ryan Sanders MD Apr 05, 2017 12:21 pm
[2017-04-06 15:52] LABS: VITAMIN B6 6.3 ng/mL (2.1-21.7)
== END 2017-04-05 14:44 | disposition home or self-care (01) ==
LOC: NEPC 10:37 → NEDA 13:03 → NEPHCDU 14:21
PROVIDERS: ADMIT Hospitalist; ATTEND Hospitalist
DX: R51 Headache (principal); G43.909 Migraine, unspecified, not intractable, without status migrainosus; J45.909 Unspecified asthma, uncomplicated; R56.9 Unspecified convulsions; H53.489 Generalized contraction of visual field, unspecified eye; H53.149 Visual discomfort, unspecified; R41.0 Disorientation, unspecified; R94.01 Abnormal electroencephalogram [EEG]; I49.8 Other specified cardiac arrhythmias; R47.89 Other speech disturbances; I10 Essential (primary) hypertension; E11.9 Type 2 diabetes mellitus without complications; E78.00 Pure hypercholesterolemia, unspecified; M25.569 Pain in unspecified knee; G89.29 Other chronic pain; H40.9 Unspecified glaucoma; H54.8 Legal blindness, as defined in USA
CPT/HCPCS: 36600; 70450; 70544; 70548; 70553; 80048; 80061; 80164; 82140; 82550; 82552; 82607; 82746; 82805; 83036; 83921; 84165; 84207; 84425; 85025; 85652; 86038; 86140; 86430; 86592; 93005; 95819; 99285; A9579; G0378; J3420; J7030

== ENCOUNTER 2017-04-07 20:41 | Emergency (ER) | payer MEDICAID ==
[~2017-04-07] VITALS: Ht 170.2 cm; Wt 105.0 kg
[~2017-04-07 20:41] MED LIST: ALBUAER3 INH; BUTA1CAP PO; DEPA500T3 PO; SYMB160A INH
[2017-04-07 20:44] VITALS: BP 149/88; PULSE 107; RESP 14; TEMP 98.5; O2SAT 97
--- NOTE | 2017-04-07 21:48 | PD ---
Physical Exam Date Seen by Provider: Apr 07, 2017 Time Seen by Provider: 21:46 Data Data Last Documented VS Vital Signs Date Time Temp Pulse Resp B/P Pulse Ox O2 Delivery O2 Flow Rate FiO2 04/07/17 20:44 98.5 107 14 149/88 97 Room Air MDM Supervised Visit with SATURNINO: No Narrative Course 46 YO M with complaint of left sided head pressure and lightheadedness. Dc'd from hospital 04/05. Dx'd with abscence seizures. Vitals reviewed. Patient seen in triage, awaiting bed placement. Alix Oro Apr 07, 2017 21:48
[2017-04-08 00:17] VITALS: BP_SYST 148; BP_SYST 150; BP_DIAS 82; BP_DIAS 91; RESP 15; RESP 16
[2017-04-08 00:28] VITALS: O2SAT 98
[2017-04-08 00:38] LABS: BASOPHIL # 0.1 TH/MM3 (0-0.2); EOSINOPHIL # 0.1 TH/MM3 (0-0.4); EOSINOPHIL % 1.5 % (0.0-4.0); HEMO FLAGS DIFF FINAL; LYMPH % 41.7 % (9.0-44.0); LYMPHOCYTE # 2.7 TH/MM3 (1.0-4.8); MEAN CELL VOLUME 88.1 FL (80.0-100.0); MEAN CORPUSCULAR HEMOGLOBIN 29.4 PG (27.0-34.0); MEAN CORPUSCULAR HGB CONC 33.3 % (32.0-36.0); MONO % 9.7 % (0.0-8.0); NEUT % 46.1 % (16.0-70.0); PLATELET COUNT 221 TH/MM3 (150-450); RED BLOOD COUNT 5.45 MIL/MM3 (4.50-5.90); RED CELL DISTRIBUTION WIDTH 14.3 % (11.6-17.2); WHITE BLOOD COUNT 6.6 TH/MM3 (4.0-11.0)
--- NOTE | 2017-04-08 00:51 | PD ---
HPI Chief Complaint: Dizziness Time Seen by Provider: 23:35 Travel History International Travel<30 days: No Contact w/Intl Traveler<30days: No Traveled to known affect area: No History of Present Illness HPI The patient is a 46 year old male who presents to the [facility] emergency department with a history of seizure disorder in childhood with recurrent seizure activity that was diagnosed during an admission from April 03 to April 05 by EGD. The patient was reportedly having staring episodes. He was started on Depakote after evaluation by the neurologist. The patient reports that he was discharged 2 days ago and had not filled his prescriptions until today. He reports that today he began to have similar symptoms including a headache over the left side of his forehead and a sensation of dizziness. The patient decided to come to the emergency department for evaluation and treatment. He reports that he did get his Depakote and Fioricet prescription filled. He did take his first dose as an outpatient of the Depakote prior to arrival. On review of systems otherwise, the patient denies any recent fevers, cough, congestion, neck pain, chest pain, shortness of breath, abdominal pain, vomiting , diarrhea, urinary symptoms, or other neurologic symptoms. [facility] Past Medical History Narrative Medical The patient's past medical history is significant for absence seizures, migraine headaches, asthma. Asthma: Yes Blood Disorders: No Cancer: No Cardiovascular Problems: Yes High Cholesterol: Yes Diabetes: Yes (diabetes mellitus) Patient Takes Glucophage: No Diminished Hearing: No Endocrine: Yes Genitourinary: No Headaches: Yes Immune Disorder: No Musculoskeletal: No Neurologic: Yes (Absence seizures, migraines) Psychiatric: No Reproductive: No Respiratory: Yes (BRONCHITIS) Seizures: Yes (Absence seizures) Past Surgical History Narrative Surgical The patient's past surgical history is reportedly none. Surgical History: No Previous Surgery Other Surgery: No Social History Alcohol Use: No Tobacco Use: No Substance Use: Yes (3 years prior) Allergies-Medications (Allergen,Severity, Reaction): Coded Allergies: Contrast Media (Verified Allergy, Severe, SOB, SWELLING, 04/07/17) Iodinated Contrast Media (Verified Allergy, Severe, SOB, SWELLING, 04/07/17) Shellfish (Verified Allergy, Severe, LIPS SWELL, 04/07/17) Reported Meds & Prescriptions Reported Meds & Active Scripts Active Fioricet (Kedqgrnspc-Eavqxzftaegao-Jhmroazz) 50-300-40 Mg Cap 1 Cap PO DAILY PRN Depakote ER (Divalproex Sodium) 500 Mg Manuel 500 Mg PO HS Reported Symbicort Inh (Budesonide/Formoterol Fumarate) 160-4.5 Mcg/Act Aero 1 Puff INH Q12HR Proair Hfa 8.5 GM Inh (Albuterol Sulfate) 90 Mcg/Act Aer 2 Puff INH Q4-6H PRN 108 mcg/actuation Review of Systems Except as stated in HPI: all other systems reviewed are Neg General / Constitutional: No: Fever Eyes: No: Visual changes HENT: Positive: Headaches, Lightheadedness, No: Vertigo, Rhinorrhea, Neck Stiffness, Neck Pain Cardiovascular: No: Chest Pain or Discomfort Respiratory: No: Cough, Shortness of Breath Gastrointestinal: No: Abdominal Pain Genitourinary: No: Dysuria Musculoskeletal: No: Pain Skin: No Rash Neurologic: Positive: Dizziness, No: Weakness, Focal Abnormalities, Change in Mentation, Slurred Speech, Sensory Disturbance Psychiatric: No: Depression Endocrine: No: Polydipsia Hematologic/Lymphatic: No: Easy Bruising Physical Exam Narrative General: The patient is a well-developed well-nourished male in no acute distress. Head and Neck exam: Head is normocephalic atraumatic. Eyes: EOMI, pupils are equal round and reactive to light. No nystagmus noted. Nose: Midline septum with pink mucous membranes Mouth: Dentition unremarkable. Moist mucus membranes. Posterior oropharynx is not erythematous. No tonsillar hypertrophy. Uvula midline. Airway patent. Neck: No palpable lymphadenopathy. No nuchal rigidity. No thyromegaly. Cardiovascular: Regular rate and rhythm without murmurs, gallops, or rubs. Lungs: Clear to auscultation bilaterally. No wheezes, rhonchi, or rales. Abdomen: Soft, without tenderness to palpation in all 4 quadrants of the abdomen. No guarding, rebound, or rigidity. Normal bowel sounds are audible. No tenderness on palpation of McBurney's point. Extremities: No clubbing, cyanosis, or edema. 2+ pulses in all 4 extremities. Back: No spinous process tenderness to palpation. No costovertebral angle tenderness to palpation. Neurologic Exam: Cranial nerves 2-12 were intact on exam. Strength is 5/5 in all 4 extremities. No sensory deficits noted. Skin Exam: No rash noted. Intact skin that is warm and dry. Data Data Last Documented VS Vital Signs Date Time Temp Pulse Resp B/P Pulse Ox O2 Delivery O2 Flow Rate FiO2 04/08/17 00:28 98 Room Air 04/08/17 00:17 74 15 150/91 70 16 152/69 77 16 148/82 04/07/17 20:44 98.5 Orders Complete Blood Count With Diff (04/08/17 00:01) Comprehensive Metabolic Panel (04/08/17 00:01) Valproic Acid (Depakene) (04/08/17 00:01) Iv Access Insert/Monitor (04/08/17 00:) Ecg Monitoring (04/08/17 00:) Oximetry (04/08/17 00:01) Orthostatic Vital Signs (04/08/17 00:01) Labs Laboratory Tests Test 04/08/17 00:25 White Blood Count 6.6 TH/MM3 Red Blood Count 5.45 MIL/MM3 Hemoglobin 16.0 GM/DL Hematocrit 48.0 % Mean Corpuscular Volume 88.1 FL Mean Corpuscular Hemoglobin 29.4 PG Mean Corpuscular Hemoglobin 33.3 % Concent Red Cell Distribution Width 14.3 % Platelet Count 221 TH/MM3 Mean Platelet Volume 8.8 FL Neutrophils (%) (Auto) 46.1 % Lymphocytes (%) (Auto) 41.7 % Monocytes (%) (Auto) 9.7 % Eosinophils (%) (Auto) 1.5 % Basophils (%) (Auto) 1.0 % Neutrophils # (Auto) 3.0 TH/MM3 Lymphocytes # (Auto) 2.7 TH/MM3 Monocytes # (Auto) 0.6 TH/MM3 Eosinophils # (Auto) 0.1 TH/MM3 Basophils # (Auto) 0.1 TH/MM3 CBC Comment DIFF FINAL Differential Comment Sodium Level 140 MEQ/L Potassium Level 4.2 MEQ/L Chloride Level 104 MEQ/L Carbon Dioxide Level 32.1 MEQ/L Anion Gap 4 MEQ/L Blood Urea Nitrogen 16 MG/DL Creatinine 1.21 MG/DL Estimat Glomerular Filtration 79 ML/MIN Rate Random Glucose 85 MG/DL Calcium Level 9.1 MG/DL Total Bilirubin 0.5 MG/DL Aspartate Amino Transf 33 U/L (AST/SGOT) Alanine Aminotransferase 39 U/L (ALT/SGPT) Alkaline Phosphatase 72 U/L Total Protein 8.3 GM/DL Albumin 4.3 GM/DL Valproic Acid (Depakene) Level 21 MCG/ML MDM Medical Decision Making Medical Screen Exam Complete: Yes Emergency Medical Condition: Yes Medical Record Reviewed: Yes Differential Diagnosis Recurrent seizure activity, versus electrolyte derangement, versus elevated Depakote level, versus orthostasis Narrative Course During the course of the patients emergency department visit, the patients history, examination, and differential diagnosis were reviewed with the patient. The patient had IV access obtained and blood work sent for analysis. The patient was placed on a hospitality aide with oximetry and blood pressure monitoring. Orthostatic vital signs were done. The patient had no evidence of orthostasis. The patients laboratory studies were reviewed and remarkable for a white count of 6.6, hemoglobin 16, platelets 221 with 9.7 monocytes. CMP is remarkable for CO2 of 32.1, anion gap 4, GFR 79, total protein 8.3, Depakote level is 21. The patient's symptoms appear to be related to a delay and getting his prescription filled. The patient started on his medication today. The patient will be discharged home to continue on his medication as previously prescribed. The patient is resting comfortably and feels better, is alert and in no distress. The patients results and examination findings were discussed with the patient. The repeat examination is unremarkable and benign. The history, exam, diagnostic testing, and current condition do not suggest any significant pathology to warrant further testing, continued ED treatment, admission, or surgical evaluation at this point. The vital signs have been stable. The patient does not have uncontrollable pain, intractable vomiting, or other significant symptoms. The patient's condition is stable and appropriate for discharge. The patient will pursue further outpatient evaluation with a primary care physician or other designated or consulting physician as indicated in the discharge instructions. The patient expressed understanding and was agreeable with this plan. Diagnosis Primary Impression: Seizure disorder Additional Impression: Headache Qualified Code: R51 - Nonintractable episodic headache, unspecified headache type Referrals: Neurologist Primary Care Physician Patient Instructions: Epilepsy (ED), General Instructions, Migraine Headache ( ED) Med/Other Pt SpecificInfo: No Change to Meds Disposition: 01 DISCHARGE HOME Condition: Stable Lily Ba MD Apr 08, 2017 00:51
[2017-04-08 01:04] LABS: ALT (GPT) 39 U/L (12-78); ANION GAP 4 MEQ/L (5-15); AST (GOT) 33 U/L (15-37); BICARBONATE 32.1 MEQ/L (21.0-32.0); BLOOD UREA NITROGEN 16 MG/DL (7-18); CHLORIDE 104 MEQ/L (98-107); GLOMERULAR FILTRATION RATE 79 ML/MIN (>89); POTASSIUM 4.2 MEQ/L (3.5-5.1); SODIUM (NA) 140 MEQ/L (136-145)
[2017-04-08 01:06] LABS: ALKALINE PHOSPHATASE 72 U/L (45-117); TOTAL BILIRUBIN ADULT 0.5 MG/DL (0.2-1.0)
== END 2017-04-08 02:14 | disposition home or self-care (01) ==
LOC: NEPC 20:41
DX: G40.909 Epilepsy, unspecified, not intractable, without status epilepticus (principal); R51 Headache
CPT/HCPCS: 80053; 80164; 85025; 99283

== ENCOUNTER 2017-05-02 11:40 | Emergency (ER) | payer MEDICAID ==
[~2017-05-02] VITALS: Ht 170.2 cm; Wt 100.0 kg
[2017-05-02 11:41] VITALS: BP 163/92; PULSE 76; RESP 16; TEMP 99.2; O2SAT 97
--- NOTE | 2017-05-02 11:55 | PD ---
Physical Exam Time Seen by Provider: 11:53 Narrative 46 y/o male here with bilateral knee pain for >1 year. Vital signs reviewed. Seen at triage desk. Awaiting bed placement. Data Data Last Documented VS Vital Signs Date Time Temp Pulse Resp B/P Pulse Ox O2 Delivery O2 Flow Rate FiO2 05/02/17 11:41 99.2 76 16 163/92 97 Room Air MDM Medical Record Reviewed: Yes Supervised Visit with SATURNINO: Sancho Wu May 02, 2017 11:54
--- NOTE | 2017-05-02 12:26 | PD ---
HPI Chief Complaint: Musculoskeletal Complaint Time Seen by Provider: 12:16 Travel History International Travel<30 days: No Contact w/Intl Traveler<30days: No Traveled to known affect area: No History of Present Illness HPI 46-year-old male presents to the emergency Department with complaint of bilateral knee pain for greater than a year and is requesting refill of pain medication, Tylenol 3's. Denies injury. Denies paresthesias, loss of sensation , decreased range of motion, decreased strength bilateral lower extremities. Reports denies fever, vomiting. Denies erythema, edema to the bilateral knees. Dr. Romero is his primary care provider. He has followed up with his PCP in regards to this complaint and was given a month's supply of pain medication, is being sent for outpatient x-rays, and has been referred to orthopedics. Patient has not tried any other medications or treatments to alleviate symptoms. Pain is worse with ambulation and movement. Has no other medical complaints. Allergies to contrast media and shellfish. No other modifying factors or associated signs and symptoms. History Past Medical Histgory Hx Cancer: No Social History Alcohol Use: No Tobacco Use: No Allergies-Medications (Allergen,Severity, Reaction): Coded Allergies: Contrast Media (Verified Allergy, Severe, SOB, SWELLING, 04/07/17) Iodinated Contrast Media (Verified Allergy, Severe, SOB, SWELLING, 04/07/17) Shellfish (Verified Allergy, Severe, LIPS SWELL, 04/07/17) Reported Meds & Prescriptions Reported Meds & Active Scripts Active Fioricet (Lnzieclvfs-Jopuxsnxbxvxg-Piufrvjf) 50-300-40 Mg Cap 1 Cap PO DAILY PRN Depakote ER (Divalproex Sodium) 500 Mg Manuel 500 Mg PO HS Reported Symbicort Inh (Budesonide/Formoterol Fumarate) 160-4.5 Mcg/Act Aero 1 Puff INH Q12HR Proair Hfa 8.5 GM Inh (Albuterol Sulfate) 90 Mcg/Act Aer 2 Puff INH Q4-6H PRN 108 mcg/actuation Review of Systems Except as stated in HPI: all other systems reviewed are Neg Physical Exam Narrative GENERAL: Well-nourished, well-developed male patient, in no acute distress; afebrile, nontoxic-appearing SKIN: Warm and dry. HEAD: Atraumatic. Normocephalic. EYES: Pupils equal and round. No scleral icterus. No injection or drainage. ENT: Mucosa pink and moist. Airway patent. NECK: Trachea midline. CARDIOVASCULAR: Regular rate. RESPIRATORY: No accessory muscle use. GASTROINTESTINAL: Rounded. MUSCULOSKELETAL: Bilateral knees nonedematous, nonerythematous, and without ecchymosis; full range of motion and flexion to 90; point tenderness to the posterior, lateral, medial aspects; joint stable with negative drawer test; no obvious deformity. Bilateral Lower extremity is supple and non-tense with 2+ pedal pulse and sensory intact and without erythema or edema. Ambulatory in room with a slow gait. NEUROLOGICAL: Awake and alert. Oriented 3. No obvious cranial nerve deficits. Motor grossly within normal limits. Normal speech. PSYCHIATRIC: Appropriate mood and affect; insight and judgment normal. Data Data Last Documented VS Vital Signs Date Time Temp Pulse Resp B/P Pulse Ox O2 Delivery O2 Flow Rate FiO2 05/02/17 11:41 99.2 76 16 163/92 97 Room Air [facility] Medical Screen Exam Complete: Yes Emergency Medical Condition: No Differential Diagnosis Arthritis, bursitis, less likely fracture or dislocation Narrative Course 46-year-old male with bilateral knee pain greater than one year requesting refill on pain medication. He is following up with Dr. Romero and has follow-up for outpatient x-rays and referral for orthopedics. He was seen by Dr. Romero yesterday and was not given a refill for his pain medication. Patient was instructed to follow up with primary care provider and orthopedics as planned. The patient prescription for nonnarcotic and he declined. Vital signs are stable and the patient is stable for outpatient follow-up and treatment. The patient has no urgent or emergent medical complaints. There is no emergent or urgent medical need at this time. I instructed the patient to follow up with their primary care provider. A medical screening exam was performed: At the time of evaluation the presenting medical condition was determined not to be of an emergent nature. The patient was given the option of receiving additional care, but declined. Patient was given options for additional community resources from which to obtain care. The Patient Has Been advised to seek medical attention for their presenting complaint. The patient has been advised to return to the ER at any time if an emergent condition develops. Primary Impression: Encounter for medical screening examination Condition: Stable Clover Martinez [facility] May 02, 2017 12:26
== END 2017-05-02 12:17 | disposition left against medical advice (07) ==
LOC: NEPK 11:40
DX: M25.562 Pain in left knee (principal); M25.561 Pain in right knee; Z79.899 Other long term (current) drug therapy
CPT/HCPCS: 99281

== ENCOUNTER 2017-06-04 10:24 | Emergency (ER) | payer MEDICAID ==
[2017-06-04 10:26] VITALS: BP 156/100; PULSE 84; RESP 16; TEMP 98.2; O2SAT 100
[2017-06-04] MEDS ORDERED: KETOROLAC TROMETHAMINE 60 MG/2 ML (IM) VIAL IM ONE (10:45)
[2017-06-04] MEDS ORDERED: PROCHLORPERAZINE INJ 10 MG/2 ML VIAL IM ONE (10:45)
--- NOTE | 2017-06-04 10:50 | PD ---
HPI . acute on chronic headache Chief Complaint: Headache Time Seen by Provider: 10:41 Travel History International Travel<30 days: No Contact w/Intl Traveler<30days: No Traveled to known affect area: No History of Present Illness HPI 46- year old male with a PMHx of Absence seizures and chronic migraines presents to the ED complaining of a headache. The patient reports the headache started last night and describes it as pulsating and more in the posterior of his head. He currently rates his headache as a 7-8/10. He reports he tried taking Ibuprofen for the headache but had no relief. He reports the pain wakes him up in the middle of the night and was worse this morning. He denies any fevers or neck pain. The patient is requesting a CT scan of his head. Patient reports that he is seeing his PCP Dr. Sanches for monitoring of his chronic migraines and has a follow up appointment on Saturday. He came to see if we would be able to scan his head. PFSH Past Medical History Asthma: Yes Blood Disorders: No Cancer: No Cardiovascular Problems: Yes High Cholesterol: Yes Diabetes: Yes (diabetes mellitus) Diminished Hearing: No Endocrine: Yes Genitourinary: No Headaches: Yes Immune Disorder: No Musculoskeletal: No Neurologic: Yes (Absence seizures, migraines) Psychiatric: No Reproductive: No Respiratory: Yes (BRONCHITIS) Seizures: Yes (Absence seizures) Past Surgical History Other Surgery: No Social History Alcohol Use: No Tobacco Use: No Substance Use: Yes (3 years prior) Allergies-Medications (Allergen,Severity, Reaction): Coded Allergies: Iodinated Contrast- Oral and IV Dye (Unverified Allergy, Severe, SOB, SWELLING, 06/04/17) diatrizoate meglumine (Unverified Allergy, Severe, SOB, SWELLING, 06/04/17) gadobenic acid (Unverified Allergy, Severe, SOB, SWELLING, 06/04/17) gadodiamide (Unverified Allergy, Severe, SOB, SWELLING, 06/04/17) gadoteridol (Unverified Allergy, Severe, SOB, SWELLING, 06/04/17) iodixanol (Unverified Allergy, Severe, SOB, SWELLING, 06/04/17) iohexol (Unverified Allergy, Severe, SOB, SWELLING, 06/04/17) shellfish derived (Unverified Allergy, Severe, LIPS SWELL, 06/04/17) Reported Meds & Prescriptions Reported Meds & Active Scripts Active Fioricet (Aqhyepaipc-Ykixjwzdxhaze-Vhmmtzjo) 50-300-40 Mg Cap 1 Cap PO DAILY PRN Depakote ER (Divalproex Sodium) 500 Mg Manuel 500 Mg PO HS Reported Zorvolex (Diclofenac) 18 Mg Cap 18 Mg PO TID Symbicort Inh (Budesonide/Formoterol Fumarate) 160-4.5 Mcg/Act Aero 1 Puff INH Q12HR Proair Hfa 8.5 GM Inh (Albuterol Sulfate) 90 Mcg/Act Aer 2 Puff INH Q4-6H PRN 108 mcg/actuation Review of Systems General / Constitutional: No: Fever, Chills, Weight Gain, Weight Loss, Other Eyes: No: Diploplia, Blurred Vision, Photophobia, Drainage, Redness, Foreign Body Sensation, Pain, Tearing, Blind Spots, Visual changes, Blindness, Other HENT: Positive: Headaches, No: Vertigo, Lightheadedness, Sore Throat, Rhinitis , Rhinorrhea, Congestion, Nosebleed, Neck Stiffness, Neck Pain, Masses, Gingival Bleeding, Dental Difficulties, Ear Discharge, Earache, Other Cardiovascular: No: Chest Pain or Discomfort, Palpitations, Irregular Rhythm, Tachycardia, Diaphoresis, Syncope, Dyspnea on exertion, Varicosities, Edema, Cyanosis, Varicosities, Phlebitis, Claudication, Other Respiratory: No: Cough, Shortness of Breath, Wheezing, Sneezing, Orthopnea, Hemoptysis, Stridor, Night Sweats, Pleuritic Pain, Other Gastrointestinal: No: Nausea, Vomiting, Diarrhea, Abdominal Pain, Hematemesis, Hematochezia, Constipation, Changes in Bowel Habits, Indigestion, Dysphagia, Loss of Appetite, Other Genitourinary: No: Urgency, Frequency, Dysuria, Nocturia, Hematuria, Decreased Urinary Output, Oliguria, Hesitancy, Dribbling, Incontinence, Pelvic Pain, Flank Pain, Dyspareunia, Discharge, Dysmenorrhea, Menorrhagia, Metorrhagia, Vaginal Bleeding, Other Musculoskeletal: No: Myalgias, Arthralgias, Limited ROM, Weakness, Cramping, Edema, Pain, Atrophy, Other Skin: No Rash, No Itching, No Dryness, No Lumps, No Hives, No Change in Pigmentation, No Change in nails, No Alopecia, No Lesions, No Breast Lumps, No Breast Tenderness, No Breast Swelling, No Other Neurologic: No: Weakness, Dizziness, Syncope, Focal Abnormalities, Coordination Problem, Tremor, Ataxia, Headache, Change in Mentation, Slurred Speech, Paresthesia, Incontinence, Seizures, Sensory Disturbance, Other Psychiatric: No: Anxiety, Depression, Suicidal Ideations, Disorder of Thought, Mood Disorder, Substance Abuse, Homicidal Ideation, Other Endocrine: No: Heat Intolerance, Cold Intolerance, Polyuria, Polydipsia, Other Hematologic/Lymphatic: No: Easy Bruising, Lymph Node Enlargement, Other Physical Exam Narrative GENERAL: AAO x 3. NAD. SKIN: Warm and dry. HEAD: Atraumatic. Normocephalic. Tender to palpation on left side of head. EYES: Pupils equal and round. No scleral icterus. No injection or drainage. Loss of peripheral vision (5 years chronic) ENT: No nasal bleeding or discharge. Mucous membranes pink and moist. NECK: Trachea midline. No JVD. CARDIOVASCULAR: Regular rate and rhythm. RESPIRATORY: No accessory muscle use. Clear to auscultation. Breath sounds equal bilaterally. GASTROINTESTINAL: Visual inspection appears normal. MUSCULOSKELETAL: Extremities without clubbing, cyanosis, or edema. No obvious deformities. NEUROLOGICAL: Awake and alert. No obvious cranial nerve deficits. Motor grossly within normal limits. Five out of 5 muscle strength in the arms and legs. Normal speech. PSYCHIATRIC: Appropriate mood and affect; insight and judgment normal. Data Data Last Documented VS Vital Signs Date Time Temp Pulse Resp B/P (MAP) Pulse Ox O2 Delivery O2 Flow Rate FiO2 06/04/17 10:26 98.2 84 16 156/100 (118) 100 Orders Orders Prochlorperazine Inj (Compazine Inj) (06/04/17 10:45) Ketorolac Inj (Toradol Inj) (06/04/17 10:45) [facility] Medical Decision Making Medical Screen Exam Complete: Yes Emergency Medical Condition: Yes Medical Record Reviewed: Yes Differential Diagnosis Chronic migraines, Tension headache, Sleep Apnea. Narrative Course 46- year old male presents to the ED complaining of headache starting last night. The patient was seen and offered Toradol and Compazine for his migraine. The patient is requesting a CT of his head. The patient then reports that he is seeing Dr. Sanches is primary care provider for these headaches. He reports that he has a follow up appointment with Dr. Sanches on Saturday, declined all medications and would like to follow up as an outpatient basis instead. I explained to him that I did not feel any imaging was indicated as this is not a different headache from his usual headaches. His neuro exam is unremarkable except for loss of peripheral vision (for which he has had over 5 years). I offered meds again and he declined. Diagnosis Primary Impression: Cephalgia Qualified Codes: R51 - Headache Patient Instructions: General Instructions Additional Instructions: Use [id number] Tylenol or Motrin as needed. Follow-up with primary care provider. Med/Other Pt SpecificInfo: No Change to Meds Disposition: 01 DISCHARGE HOME Condition: Stable Lulu Gordon Jun 04, 2017 10:50
[2017-06-04] MEDS ORDERED: DICL1CAP3 PO (10:53)
== END 2017-06-04 11:13 | disposition home or self-care (01) ==
LOC: NEPK 10:24
DX: R51 Headache (principal); R56.9 Unspecified convulsions; J45.909 Unspecified asthma, uncomplicated; E78.00 Pure hypercholesterolemia, unspecified; E11.9 Type 2 diabetes mellitus without complications; Z79.899 Other long term (current) drug therapy; Z88.8 Allergy status to other drugs, medicaments and biological substances
CPT/HCPCS: 99281

== ENCOUNTER 2017-07-03 17:34 | Emergency (ER) | payer MEDICAID ==
[~2017-07-03] VITALS: Ht 172.7 cm; Wt 100.0 kg
[~2017-07-03 17:34] MED LIST changes: +DICL1CAP3 PO
[2017-07-03 17:36] VITALS: BP 136/87; PULSE 79; RESP 18; TEMP 98.6; O2SAT 97
== END 2017-07-03 18:50 | disposition left against medical advice (07) ==
LOC: NED 17:34
DX: R56.9 Unspecified convulsions (principal); Z53.21 Procedure and treatment not carried out due to patient leaving prior to being seen by health care provider
CPT/HCPCS: 99281

== ENCOUNTER 2017-10-27 20:38 | Emergency (ER) | payer MEDICAID ==
[2017-10-27] MEDS ORDERED: SODIUM CHLORIDE 0.9% FLUSH 10 ML FLUSH IVF (21:00)
[2017-10-27] MEDS: SODIUM CHLOR 0.9% 1000 ML INJ 1,000 ML IV (21:04)
[2017-10-27] MEDS: LORazepam 2 MG/ML VIAL IVS (21:05)
[2017-10-27 21:24] LABS: AUTOMATED NEUTROPHIL # 2.3 TH/MM3 (1.8-7.7); BASOPHIL % 0.3 % (0.0-2.0); EOSINOPHIL # 0.1 TH/MM3 (0-0.4); EOSINOPHIL % 1.7 % (0.0-4.0); HEMATOCRIT 41.8 % (39.0-51.0); HEMO FLAGS DIFF FINAL; HEMOGLOBIN 14.2 GM/DL (13.0-17.0); LYMPH % 47.7 % (9.0-44.0); LYMPHOCYTE # 2.7 TH/MM3 (1.0-4.8); MEAN CELL VOLUME 90.7 FL (80.0-100.0); MEAN CORPUSCULAR HEMOGLOBIN 30.8 PG (27.0-34.0); MEAN PLATELET VOLUME 8.7 FL (7.0-11.0); MONO % 10.5 % (0.0-8.0); MONOCYTE # 0.6 TH/MM3 (0-0.9); NEUT % 39.8 % (16.0-70.0); PLATELET COUNT 210 TH/MM3 (150-450); RED BLOOD COUNT 4.61 MIL/MM3 (4.50-5.90); RED CELL DISTRIBUTION WIDTH 13.9 % (11.6-17.2); WHITE BLOOD COUNT 5.7 TH/MM3 (4.0-11.0)
[2017-10-27 21:41] LABS: ALT (GPT) 42 U/L (12-78)
[2017-10-27 21:43] LABS: ALBUMIN 3.8 GM/DL (3.4-5.0); ANION GAP 4 MEQ/L (5-15); AST (GOT) 34 U/L (15-37); BICARBONATE 32.1 MEQ/L (21.0-32.0); BLOOD UREA NITROGEN 14 MG/DL (7-18); CALCIUM 8.4 MG/DL (8.5-10.1); CHLORIDE 104 MEQ/L (98-107); CREATININE 1.21 MG/DL (0.60-1.30); GLOMERULAR FILTRATION RATE 79 ML/MIN (>89); GLUCOSE,RANDOM 108 MG/DL (74-106); POTASSIUM 3.7 MEQ/L (3.5-5.1); SODIUM (NA) 140 MEQ/L (136-145)
[2017-10-27 21:44] LABS: ALKALINE PHOSPHATASE 86 U/L (45-117); TOTAL BILIRUBIN ADULT 0.3 MG/DL (0.2-1.0); TOTAL PROTEIN 7.1 GM/DL (6.4-8.2); VALPROIC ACID (DEPAKENE) LESS THAN 3 MCG/ML (50-100)
== END 2017-10-27 22:32 | disposition home or self-care (01) ==
LOC: NEPE 20:38
DX: R56.9 Unspecified convulsions (principal); J45.909 Unspecified asthma, uncomplicated; E11.9 Type 2 diabetes mellitus without complications; Z91.14 Patient's other noncompliance with medication regimen; Z79.51 Long term (current) use of inhaled steroids; Z79.899 Other long term (current) drug therapy; Z88.8 Allergy status to other drugs, medicaments and biological substances
CPT/HCPCS: 70450; 80053; 80164; 85025; 96361; 96374; 99285-25

== ENCOUNTER 2017-12-14 11:02 | Emergency (ER) | payer MEDICAID ==
[~2017-12-14] VITALS: Ht 167.6 cm; Wt 105.0 kg
[~2017-12-14 11:02] MED LIST changes: +CETI10 PO
[2017-12-14 11:14] VITALS: BP 151/68; PULSE 81; RESP 18; TEMP 98.6; O2SAT 96
[2017-12-14] MEDS ORDERED: cefTRIAXone INJ 1,000 MG in SODIUM CHLORIDE 0.9% INJ 100 ML IV ONE (13:15)
[2017-12-14] MEDS ORDERED: AZITHROMYCIN 250 MG TAB PO SCH (13:15)
[2017-12-14] MEDS ORDERED: SODIUM CHLORIDE 0.9% FLUSH 10 ML FLUSH IVF PRN (13:15)
[2017-12-14] MEDS ORDERED: methylPREDNISolone SOD SUCC 125 MG/2 ML VIAL IV PUSH ONE (13:15)
[2017-12-14] MEDS: RESP: ALBUTEROL 2.5 MG/IPRATROPIUM 0.5 MG NEB (SCH) INH ×3 (13:15→13:40)
--- NOTE | 2017-12-14 13:20 | PD ---
HPI Chief Complaint: Cold / Flu Symptoms Time Seen by Provider: 13:08 Travel History International Travel<30 days: No Contact w/Intl Traveler<30days: No Traveled to known affect area: No History of Present Illness HPI 47-year-old -[place] male with history of asthma presents emergency department with one-week history of increasing cough, wheezing, shortness of breath, and pain with cough. Patient states pleuritic pain when he takes a deep breath more on the left than the right. He states episode of hemoptysis this morning which brought him to the emergency department. Patient has a nebulizer at home as well as albuterol metered-dose inhaler which has not been helpful. He has had difficulty sleeping secondary to shortness of breath. He denies nausea, vomiting, significant fever, sore throat, ear pain, or headache. Patient is allergic to shellfish and iodine. PFSH Past Medical History Asthma: Yes Blood Disorders: No Cancer: No Cardiovascular Problems: Yes High Cholesterol: Yes Diabetes: Yes Diminished Hearing: No Endocrine: Yes Genitourinary: No Headaches: Yes Hypertension: Yes (r/t headaches) Immune Disorder: No Musculoskeletal: Yes (ignacio knee prob/chronic pain) Neurologic: Yes (Absence seizures, migraines) Psychiatric: No Reproductive: No Respiratory: Yes (BRONCHITIS) Seizures: Yes (Absence seizures) Past Surgical History Other Surgery: No Social History Alcohol Use: Yes Tobacco Use: No Substance Use: No (3 years prior) Allergies-Medications (Allergen,Severity, Reaction): Coded Allergies: Iodinated Contrast- Oral and IV Dye (Unverified Allergy, Severe, SOB, SWELLING, 12/14/17) diatrizoate meglumine (Unverified Allergy, Severe, SOB, SWELLING, 12/14/17) gadobenic acid (Unverified Allergy, Severe, SOB, SWELLING, 12/14/17) gadodiamide (Unverified Allergy, Severe, SOB, SWELLING, 12/14/17) gadoteridol (Unverified Allergy, Severe, SOB, SWELLING, 12/14/17) iodixanol (Unverified Allergy, Severe, SOB, SWELLING, 12/14/17) iohexol (Unverified Allergy, Severe, SOB, SWELLING, 12/14/17) shellfish derived (Unverified Allergy, Severe, LIPS SWELL, 12/14/17) Reported Meds & Prescriptions Reported Meds & Active Scripts Active Ipratropium Neb (Ipratropium [place]) 0.5 Mg/2.5 Ml Amp 0.5 Mg NEB Q6HR NEB PRN Albuterol Neb (Albuterol Sulfate) 2.5 Mg/3 Ml Neb 2.5 Mg NEB QID NEB Ventolin Hfa 18 GM Inh (Albuterol Sulfate) 90 Mcg/Act Aer 2 Puff INH Q4-6H PRN Azithromycin 500 Mg Tab 500 Mg PO DAILY Prednisone (21) 10 mg tab Dose Pack (Prednisone) 10 Mg Pack 10 Mg PO DIRECTED Fioricet (Edkztaunle-Ydknhmgvwtfjv-Sgjkhqfy) 50-300-40 Mg Cap 1 Cap PO DAILY PRN Reported Cetirizine (Cetirizine HCl) 10 Mg Tab 10 Mg PO DAILY Zorvolex (Diclofenac) 18 Mg Cap 18 Mg PO TID Symbicort Inh (Budesonide/Formoterol Fumarate) 160-4.5 Mcg/Act Aero 1 Puff INH Q12HR Proair Hfa 8.5 GM Inh (Albuterol Sulfate) 90 Mcg/Act Aer 2 Puff INH Q4-6H PRN 108 mcg/actuation Review of Systems Except as stated in HPI: all other systems reviewed are Neg General / Constitutional: No: Fever, Chills Eyes: No: Visual changes HENT: No: Headaches Cardiovascular: Positive: Chest Pain or Discomfort Respiratory: Positive: Cough, Shortness of Breath, Wheezing, Orthopnea, Hemoptysis, Pleuritic Pain, No: Sneezing, Stridor, Night Sweats Gastrointestinal: No: Nausea, Vomiting, Diarrhea, Abdominal Pain Genitourinary: No: Dysuria Musculoskeletal: No: Pain Skin: No Rash Neurologic: No: Weakness Psychiatric: No: Depression Endocrine: No: Polydipsia Hematologic/Lymphatic: No: Easy Bruising Physical Exam Narrative GENERAL: Patient appears in mild respiratory distress. He can speak in short sentences. SKIN: Warm and dry. Normal color. Normal turgor. HEAD: Atraumatic. Normocephalic. EYES: Pupils equal and round. No scleral icterus. No injection or drainage. ENT: No nasal bleeding or discharge. Mucous membranes pink and moist. Pharynx is clear. Airways patent. NECK: Trachea midline. Supple nontender. CARDIOVASCULAR: Regular rate and rhythm. RESPIRATORY: No accessory muscle use. Diffuse wheezing throughout to auscultation. Question of decreased breath sounds in the left lower lobe. GASTROINTESTINAL: Abdomen soft, non-tender, nondistended. Hepatic and splenic margins not palpable. MUSCULOSKELETAL: Extremities without clubbing, cyanosis, or edema. No obvious deformities. NEUROLOGICAL: Awake and alert. No obvious cranial nerve deficits. Motor grossly within normal limits. Five out of 5 muscle strength in the arms and legs. Normal speech. PSYCHIATRIC: Appropriate mood and affect; insight and judgment normal. Data Data Last Documented VS Vital Signs Date Time Temp Pulse Resp B/P (MAP) Pulse Ox O2 Delivery O2 Flow Rate FiO2 12/14/17 13:55 79 18 120/60 (80) 97 Nasal Cannula 2.00 12/14/17 11:14 98.6 Orders Orders Electrocardiogram (12/14/17 ) Complete Blood Count With Diff (12/14/17 13:13) Comprehensive Metabolic Panel (12/14/17 13:13) Chest, Pa & Lat (12/14/17 13:13) Ecg Monitoring (12/14/17 13:13) Iv Access Insert/Monitor (12/14/17 13:13) Oximetry (12/14/17 13:13) Oxygen Administration (12/14/17 13:13) Methylprednisolone So Succ Inj (Solumedr (12/14/17 13:15) Albuterol-Ipratropium Neb (Duoneb Neb) (12/14/17 13:15) Sodium Chloride 0.9% Flush (Ns Flush) (12/14/17 13:15) Ceftriaxone Inj (Rocephin Inj) (12/14/17 13:15) Azithromycin (Zithromax) (12/14/17 13:15) Labs Laboratory Tests Test 12/14/17 13:35 White Blood Count 3.8 TH/MM3 Red Blood Count 5.05 MIL/MM3 Hemoglobin 15.5 GM/DL Hematocrit 45.5 % Mean Corpuscular Volume 90.2 FL Mean Corpuscular Hemoglobin 30.7 PG Mean Corpuscular Hemoglobin Concent 34.0 % Red Cell Distribution Width 14.0 % Platelet Count 205 TH/MM3 Mean Platelet Volume 8.8 FL Neutrophils (%) (Auto) 29.1 % Lymphocytes (%) (Auto) 45.5 % Monocytes (%) (Auto) 19.6 % Eosinophils (%) (Auto) 4.9 % Basophils (%) (Auto) 0.9 % Neutrophils # (Auto) 1.1 TH/MM3 Lymphocytes # (Auto) 1.7 TH/MM3 Monocytes # (Auto) 0.7 TH/MM3 Eosinophils # (Auto) 0.2 TH/MM3 Basophils # (Auto) 0.0 TH/MM3 CBC Comment DIFF FINAL Differential Comment Blood Urea Nitrogen 8 MG/DL Creatinine 1.17 MG/DL Random Glucose 74 MG/DL Total Protein 7.4 GM/DL Albumin 3.9 GM/DL Calcium Level 8.6 MG/DL Alkaline Phosphatase 84 U/L Aspartate Amino Transf (AST/SGOT) 32 U/L Alanine Aminotransferase (ALT/SGPT) 55 U/L Total Bilirubin 0.2 MG/DL Sodium Level 140 MEQ/L Potassium Level 4.2 MEQ/L Chloride Level 107 MEQ/L Carbon Dioxide Level 28.7 MEQ/L Anion Gap 4 MEQ/L Estimat Glomerular Filtration Rate 82 ML/MIN MDM Medical Decision Making Medical Screen Exam Complete: Yes Emergency Medical Condition: Yes Medical Record Reviewed: Yes Differential Diagnosis Asthma with acute exacerbation. Bronchitis. Pneumonia. Narrative Course Patient appears medically stable at time of exam. EKG performed in triage shows no acute findings. Chest x-ray is ordered PA and lateral. IV access is obtained and CBC, CMP are ordered. Patient is given 125 mg Solu-Medrol IV as well as 1000 mg Rocephin IV, and 500 mg azithromycin p.o. Patient is given DuoNeb 3. Chest x-ray is read as negative for acute process. CBC showed white blood cell count of 3.8, with increase in lymphocytes and monocytes on differential. Chemistries show nothing significant. Patient feels improved after the above treatment plan. Patient will be treated with azithromycin 500 mg daily for 3 days. Patient also given prednisone Dosepak as prescribed. Patient given a refill of his albuterol metered-dose inhaler. Patient is given ipratropium bromide unit dose vials for his nebulizer 4 times daily. #120 Patient is given albuterol metered dose vials for his nebulizer 4 times daily # 120. Diagnosis Primary Impression: Acute wheezy bronchitis Additional Impression: Asthma with acute exacerbation in adult Qualified Codes: J45.41 - Moderate persistent asthma with (acute) exacerbation Referrals: Primary Care Physician Patient Instructions: Acute Bronchitis (ED), Asthma (ED), General Instructions Additional Instructions: Patient will be treated with azithromycin 500 mg daily for 3 days. Patient also given prednisone Dosepak as prescribed. Patient given a refill of his albuterol metered-dose inhaler. Patient is given ipratropium bromide unit dose vials for his nebulizer 4 times daily. #120 Patient is given albuterol metered dose vials for his nebulizer 4 times daily # 120. Med/Other Pt SpecificInfo: Prescription(s) given Scripts Ipratropium Neb (Ipratropium Neb) 0.5 Mg/2.5 Ml Amp 0.5 MG NEB Q6HR NEB Y for SHORTNESS OF BREATH, #120 NEBULE 0 Refills Prov: Adrian Chairez MD 12/14/17 Albuterol Neb (Albuterol Neb) 2.5 Mg/3 Ml Neb 2.5 MG NEB QID NEB for Breathing Treatment, #120 NEBULE 0 Refills Prov: Adrian Chairez MD 12/14/17 Albuterol 18 GM Inh (Ventolin Hfa 18 GM Inh) 90 Mcg/Act Aer 2 PUFF INH Q4-6H Y for SHORTNESS OF BREATH, #1 INHALER 0 Refills Prov: Adrian Chairez MD 12/14/17 Azithromycin (Azithromycin) 500 Mg Tab 500 MG PO DAILY for Infection, #3 TAB 0 Refills Prov: Adrian Chairez MD 12/14/17 Prednisone (21) 10 mg tab Dose Pack (Prednisone (21) 10 mg tab Dose Pack) 10 Mg Pack 10 MG PO DIRECTED for Inflammation, #1 DSPK 0 Refills Prov: Adrian Chairez MD 12/14/17 Disposition: 01 DISCHARGE HOME Condition: Stable John Rush Dec 14, 2017 13:20
[2017-12-14 13:31] VITALS: O2SAT 97
--- NOTE | 2017-12-14 13:48 | RADRPT ---
EXAM DATE/TIME: 12/14/2017 13:22 [facility] COMPARISON: CHEST PA & LAT, May 07, 2011, 18:23. INDICATIONS : Cough. MEDICAL HISTORY : Diabetes mellitus type 2. Hypertension. SURGICAL HISTORY : None. ENCOUNTER: Initial ACUITY: 1 week PAIN SCORE: 3/10 LOCATION: Bilateral chest FINDINGS: PA and lateral views of the chest. The lungs are clear. Cardiomediastinal silhouette within normal li mits. No evidence of pleural effusion or pneumothorax. CONCLUSION: No acute cardiopulmonary disease identified. Rudy Palafox MD on December 14, 2017 at 13:45 Board Certified Radiologist. This report was verified electronically.
[2017-12-14 13:55] VITALS: BP 120/60; PULSE 79; RESP 18; O2SAT 97
[2017-12-14 14:01] LABS: AUTOMATED NEUTROPHIL # 1.1 TH/MM3 (1.8-7.7); BASOPHIL % 0.9 % (0.0-2.0); EOSINOPHIL # 0.2 TH/MM3 (0-0.4); EOSINOPHIL % 4.9 % (0.0-4.0); HEMATOCRIT 45.5 % (39.0-51.0); HEMOGLOBIN 15.5 GM/DL (13.0-17.0); LYMPH % 45.5 % (9.0-44.0); LYMPHOCYTE # 1.7 TH/MM3 (1.0-4.8); MEAN CELL VOLUME 90.2 FL (80.0-100.0); MEAN CORPUSCULAR HEMOGLOBIN 30.7 PG (27.0-34.0); MEAN PLATELET VOLUME 8.8 FL (7.0-11.0); MONO % 19.6 % (0.0-8.0); MONOCYTE # 0.7 TH/MM3 (0-0.9); NEUT % 29.1 % (16.0-70.0); PLATELET COUNT 205 TH/MM3 (150-450); RED BLOOD COUNT 5.05 MIL/MM3 (4.50-5.90); WHITE BLOOD COUNT 3.8 TH/MM3 (4.0-11.0)
[2017-12-14] MEDS ORDERED: AZIT500T2 PO (14:17)
[2017-12-14] MEDS ORDERED: VENTAER INH (14:17)
[2017-12-14] MEDS ORDERED: PRED10PA PO (14:17)
[2017-12-14 14:24] LABS: ALT (GPT) 55 U/L (12-78)
[2017-12-14 14:26] LABS: ALKALINE PHOSPHATASE 84 U/L (45-117); TOTAL BILIRUBIN ADULT 0.2 MG/DL (0.2-1.0); TOTAL PROTEIN 7.4 GM/DL (6.4-8.2)
[2017-12-14] MEDS ORDERED: IPRA0.02 NEB (14:37)
[2017-12-14] MEDS ORDERED: ALBU0.08 NEB (14:37)
[2017-12-14 14:40] LABS: ALBUMIN 3.9 GM/DL (3.4-5.0); AST (GOT) 32 U/L (15-37); BICARBONATE 28.7 MEQ/L (21.0-32.0); BLOOD UREA NITROGEN 8 MG/DL (7-18); CALCIUM 8.6 MG/DL (8.5-10.1); CHLORIDE 107 MEQ/L (98-107); CREATININE 1.17 MG/DL (0.60-1.30); GLOMERULAR FILTRATION RATE 82 ML/MIN (>89); GLUCOSE,RANDOM 74 MG/DL (74-106); SODIUM (NA) 140 MEQ/L (136-145)
--- NOTE | 2017-12-14 14:48 | EKG ---
Date Performed: 12/14/2017 Time Performed: 11:36:29 PTAGE: 47 years EKG: Sinus rhythm NORMAL ECG No significant change from prior electrocardiogram. PREVIOUS TRACING : 04/03/2017 10.50 DOCTOR: Mick Church Interpretating Date/Time 12/14/2017 14:48:27
== END 2017-12-14 15:14 | disposition home or self-care (01) ==
LOC: NEPD 11:02
DX: J20.9 Acute bronchitis, unspecified (principal); J45.41 Moderate persistent asthma with (acute) exacerbation; E78.00 Pure hypercholesterolemia, unspecified; E11.9 Type 2 diabetes mellitus without complications; I10 Essential (primary) hypertension
CPT/HCPCS: 71046; 80053; 85025; 93005; 94640; 94664; 96365; 96375; 99285; J0696; J2930

== ENCOUNTER 2018-01-10 02:28 | Observation (INO) | payer MEDICAID ==
[2018-01-10] VITALS (10 sets, daily range): BP systolic 127–191; BP diastolic 71–108; PULSE 66–82; RESP 14–22; TEMP 97.6–98.8; O2SAT 96–100
[~2018-01-10] VITALS: Ht 182.9 cm; Wt 95.0 kg
[~2018-01-10 02:28] MED LIST changes: +ALBU0.08 NEB; +AZIT500T2 PO; -DEPA500T3 PO; +IPRA0.02 NEB; +PRED10PA PO; +VENTAER INH
[2018-01-10] MEDS ORDERED: SODIUM CHLOR 0.9% 1000 ML INJ 1,000 ML IV SCH (03:14)
[2018-01-10] MEDS ORDERED: KETOROLAC TROMETHAMINE 30 MG/ML (IVP) VIAL IV PUSH ONE (03:15)
[2018-01-10] MEDS ORDERED: ASPIRIN 81 MG CHEW TAB PO ONE (03:15)
[2018-01-10] MEDS ORDERED: SODIUM CHLORIDE 0.9% FLUSH 10 ML FLUSH IV FLUSH PRN ×2 (03:15→06:45)
[2018-01-10] MEDS ORDERED: METOCLOPRAMIDE HCL 10 MG/2 ML VIAL IV PUSH ONE (03:15)
--- NOTE | 2018-01-10 03:23 | PD ---
HPI Chief Complaint: Chest Pain Time Seen by Provider: 03:14 Travel History International Travel<30 days: No Contact w/Intl Traveler<30days: No Traveled to known affect area: No History of Present Illness HPI 47-year-old male with history of seizures, here for evaluation of several different complaints. The patient complains of left-sided headache, left-sided chest pain, nosebleeds. Symptoms have been going on for about 2 days. He reports that his head pain is left-sided and described as pounding. His chest pain is also left-sided and described as pounding. Both pains are moderate, gradual onset and seem to be worsening, no modifying factors. He does report history of migraines as a child. No fevers. No paresthesias or motor deficits. No dyspnea. No known history of cardiac disease. He is a non- smoker. He also reports that his has been telling him that he has been in and out of consciousness for the last couple of days. The patient does not recall these episodes. PFSH Past Medical History Asthma: Yes Blood Disorders: No Cancer: No Cardiovascular Problems: Yes High Cholesterol: Yes Diabetes: Yes Patient Takes Glucophage: No Diminished Hearing: No Endocrine: Yes Gastrointestinal Disorders: No Genitourinary: No Headaches: Yes Hypertension: Yes (r/t headaches) Immune Disorder: No Implanted Vascular Access Dvce: No Musculoskeletal: Yes (ignacio knee prob/chronic pain) Neurologic: Yes (Absence seizures, migraines) Psychiatric: No Reproductive: No Respiratory: Yes (BRONCHITIS) Immunizations Current: Yes Seizures: Yes (Absence seizures) Tetanus Vaccination: > 5 Years Influenza Vaccination: Yes Past Surgical History Other Surgery: No Social History Alcohol Use: Yes Tobacco Use: No Substance Use: No (3 years prior) Allergies-Medications (Allergen,Severity, Reaction): Coded Allergies: Iodinated Contrast- Oral and IV Dye (Unverified Allergy, Severe, SOB, SWELLING, 01/10/18) diatrizoate meglumine (Unverified Allergy, Severe, SOB, SWELLING, 01/10/18) gadobenic acid (Unverified Allergy, Severe, SOB, SWELLING, 01/10/18) gadodiamide (Unverified Allergy, Severe, SOB, SWELLING, 01/10/18) gadoteridol (Unverified Allergy, Severe, SOB, SWELLING, 01/10/18) iodixanol (Unverified Allergy, Severe, SOB, SWELLING, 01/10/18) iohexol (Unverified Allergy, Severe, SOB, SWELLING, 01/10/18) shellfish derived (Unverified Allergy, Severe, LIPS SWELL, 01/10/18) Reported Meds & Prescriptions Reported Meds & Active Scripts Active Ipratropium Neb (Ipratropium [place]) 0.5 Mg/2.5 Ml Amp 0.5 Mg NEB Q6HR NEB PRN Albuterol Neb (Albuterol Sulfate) 2.5 Mg/3 Ml Neb 2.5 Mg NEB QID NEB Ventolin Hfa 18 GM Inh (Albuterol Sulfate) 90 Mcg/Act Aer 2 Puff INH Q4-6H PRN Azithromycin 500 Mg Tab 500 Mg PO DAILY Prednisone (21) 10 mg tab Dose Pack (Prednisone) 10 Mg Pack 10 Mg PO DIRECTED Fioricet (Wyerffxvob-Stchgzdnkvvfm-Jmuxeunl) 50-300-40 Mg Cap 1 Cap PO DAILY PRN Reported Cetirizine (Cetirizine HCl) 10 Mg Tab 10 Mg PO DAILY Zorvolex (Diclofenac) 18 Mg Cap 18 Mg PO TID Symbicort Inh (Budesonide/Formoterol Fumarate) 160-4.5 Mcg/Act Aero 1 Puff INH Q12HR Proair Hfa 8.5 GM Inh (Albuterol Sulfate) 90 Mcg/Act Aer 2 Puff INH Q4-6H PRN 108 mcg/actuation Review of Systems Except as stated in HPI: all other systems reviewed are Neg Physical Exam Narrative GENERAL: Well-developed, well-nourished, overall very well-appearing, awake, alert, no apparent distress. SKIN: Focused skin assessment warm/dry. No rash. HEAD: Atraumatic. Normocephalic. EYES: Pupils equal and round. No scleral icterus. No injection or drainage. ENT: No nasal bleeding or discharge. Mucous membranes pink and moist. NECK: Trachea midline. No JVD. No nuchal rigidity. CARDIOVASCULAR: Regular rate and rhythm. RESPIRATORY: No accessory muscle use. Clear to auscultation. Breath sounds equal bilaterally. GASTROINTESTINAL: Abdomen soft, non-tender, nondistended. MUSCULOSKELETAL: No obvious deformities. No clubbing. No cyanosis. No edema. NEUROLOGICAL: Awake and alert. No obvious cranial nerve deficits. Motor grossly within normal limits. Normal speech. No focal deficits. PSYCHIATRIC: Appropriate mood and affect; insight and judgment normal. Data Data Last Documented VS Vital Signs Date Time Temp Pulse Resp B/P (MAP) Pulse Ox O2 Delivery O2 Flow Rate FiO2 01/10/18 02:42 97.6 69 22 163/99 (120) 100 Orders Orders Ammonia (01/10/18 03:14) Complete Blood Count With Diff (01/10/18 03:14) Comprehensive Metabolic Panel (01/10/18 03:14) Creatine Kinase (Cpk) (01/10/18 03:14) Prothrombin Time / Inr (Pt) (01/10/18 03:14) Act Partial Throm Time (Ptt) (01/10/18 03:14) Troponin I (01/10/18 03:14) Thyroid Stimulating Hormone (01/10/18 03:14) Urinalysis - C+S If Indicated (01/10/18 03:14) Chest, Single Ap (01/10/18 03:14) Ct Brain W/O Iv Contrast(Rout) (01/10/18 03:14) Blood Glucose (01/10/18 03:14) Ecg Monitoring (01/10/18 03:14) Iv Access Insert/Monitor (01/10/18 03:14) Oximetry (01/10/18 03:14) Sodium Chloride 0.9% Flush (Ns Flush) (01/10/18 03:15) Sodium Chlor 0.9% 1000 Ml Inj (Ns 1000 M (01/10/18 03:14) Drug Screen, Random Urine (01/10/18 03:14) Alcohol (Ethanol) (01/10/18 03:14) Tylenol (Acetaminophen) (01/10/18 03:14) Salicylates (Aspirin) (01/10/18 03:14) Metoclopramide Inj (Reglan Inj) (01/10/18 03:15) Ketorolac Inj (Toradol Inj) (01/10/18 03:15) Aspirin Chew (Aspirin Chew) (01/10/18 03:15) CKMB (01/10/18 03:14) CKMB% (01/10/18 03:14) Cath For Specimen (01/10/18 04:36) Labs Laboratory Tests Test 01/10/18 03:14 01/10/18 03:20 01/10/18 05:00 Blood Urea Nitrogen 14 MG/DL Creatinine 1.16 MG/DL Random Glucose 95 MG/DL Total Protein 7.7 GM/DL Albumin 4.0 GM/DL Calcium Level 8.5 MG/DL Alkaline Phosphatase 80 U/L Aspartate Amino Transf (AST/SGOT) 34 U/L Alanine Aminotransferase (ALT/SGPT) 33 U/L Total Bilirubin 0.4 MG/DL Sodium Level 139 MEQ/L Potassium Level 4.4 MEQ/L Chloride Level 105 MEQ/L Carbon Dioxide Level 27.9 MEQ/L Anion Gap 6 MEQ/L Estimat Glomerular Filtration Rate 83 ML/MIN Total Creatine Kinase 697 U/L Creatine Kinase MB 8.3 NG/ML Creatine Kinase MB % 1.2 % Troponin I LESS THAN 0.02 NG/ML Thyroid Stimulating Hormone 3rd Gen 1.860 uIU/ML Salicylates Level LESS THAN 1.7 MG/DL Acetaminophen Level LESS THAN 2.0 MCG/ML Ethyl Alcohol Level LESS THAN 3 MG/DL White Blood Count 4.6 TH/MM3 Red Blood Count 5.35 MIL/MM3 Hemoglobin 16.2 GM/DL Hematocrit 48.0 % Mean Corpuscular Volume 89.8 FL Mean Corpuscular Hemoglobin 30.3 PG Mean Corpuscular Hemoglobin Concent 33.7 % Red Cell Distribution Width 14.0 % Platelet Count 215 TH/MM3 Mean Platelet Volume 9.1 FL Neutrophils (%) (Auto) 27.9 % Lymphocytes (%) (Auto) 58.6 % Monocytes (%) (Auto) 10.8 % Eosinophils (%) (Auto) 2.2 % Basophils (%) (Auto) 0.5 % Neutrophils # (Auto) 1.3 TH/MM3 Lymphocytes # (Auto) 2.7 TH/MM3 Monocytes # (Auto) 0.5 TH/MM3 Eosinophils # (Auto) 0.1 TH/MM3 Basophils # (Auto) 0.0 TH/MM3 CBC Comment DIFF FINAL Differential Comment Prothrombin Time 10.7 SEC Prothromb Time International Ratio 1.1 RATIO Activated Partial Thromboplast Time 27.4 SEC Ammonia 15 MCMOL/L Urine Color LIGHT-YELLOW Urine Turbidity CLEAR Urine pH 5.5 Urine Specific [place] 1.027 Urine Protein NEG mg/dL Urine Glucose (UA) NEG mg/dL Urine Ketones 10 mg/dL Urine Occult Blood NEG Urine Nitrite NEG Urine Bilirubin NEG Urine Urobilinogen LESS THAN 2.0 MG/DL Urine Leukocyte Esterase NEG Urine WBC LESS THAN 1 /hpf Microscopic Urinalysis Comment CATH-CULT NOT IND Urine Opiates Screen NEG Urine Barbiturates Screen NEG Urine Amphetamines Screen NEG Urine Benzodiazepines Screen NEG Urine Cocaine Screen NEG Urine Cannabinoids Screen NEG MDM Medical Decision Making Medical Screen Exam Complete: Yes Emergency Medical Condition: Yes Medical Record Reviewed: Yes Differential Diagnosis Migraine headache, tension headache, cluster headache, SAH/meningitis/ encephalitis unlikely, ACS, pneumothorax, pericarditis, PE, pneumonia, musculoskeletal chest wall pain Narrative Course Initial vital signs show heart rate 69, blood pressure 163/99, pulse ox 100% on room air, oral temperature 97.6F. CBC: WBC 4.6, hemoglobin 16.2, hematocrit 48, platelets 215. CMP is unremarkable. Total CK 697. Cardiac enzymes are negative. Ammonia level is 15. TSH is 1.86. Tylenol level is negative. Alcohol level is negative. UA: Not suggestive of UTI Urine drug screen: Negative for all drugs tested CT head: No acute intracranial findings. Chest x-ray: No acute cardiopulmonary disease. Patient was made aware of all findings. He is sleeping comfortably. When awoke and he states he feels slightly dizzy. EKG shows some lateral T-wave abnormalities. He was given a full aspirin. He reports his chest pain is improved. He will be admitted to the chest pain center for further cardiac evaluation. Diagnosis Primary Impression: Chest pain Qualified Codes: R07.9 - Chest pain, unspecified Additional Impression: Headache Qualified Codes: R51 - Headache Admitting Information Admitting Physician Requests: Eh Hdz MD Jan 10, 2018 03:23
[2018-01-10 03:39] LABS: AUTOMATED NEUTROPHIL # 1.3 TH/MM3 (1.8-7.7); BASOPHIL % 0.5 % (0.0-2.0); EOSINOPHIL # 0.1 TH/MM3 (0-0.4); EOSINOPHIL % 2.2 % (0.0-4.0); HEMOGLOBIN 16.2 GM/DL (13.0-17.0); LYMPH % 58.6 % (9.0-44.0); LYMPHOCYTE # 2.7 TH/MM3 (1.0-4.8); MEAN CELL VOLUME 89.8 FL (80.0-100.0); MEAN CORPUSCULAR HEMOGLOBIN 30.3 PG (27.0-34.0); MEAN CORPUSCULAR HGB CONC 33.7 % (32.0-36.0); MEAN PLATELET VOLUME 9.1 FL (7.0-11.0); MONO % 10.8 % (0.0-8.0); MONOCYTE # 0.5 TH/MM3 (0-0.9); NEUT % 27.9 % (16.0-70.0); PLATELET COUNT 215 TH/MM3 (150-450); RED BLOOD COUNT 5.35 MIL/MM3 (4.50-5.90); WHITE BLOOD COUNT 4.6 TH/MM3 (4.0-11.0)
--- NOTE | 2018-01-10 03:41 | RADRPT ---
EXAM DATE/TIME: 01/10/2018 03:22 [facility] COMPARISON: CT BRAIN W/O CONTRAST, October 27, 2017, 21:26. INDICATIONS : Cephalgia. RADIATION DOSE: 56.35 CTDIvol (mGy) MEDICAL HISTORY : Hypertension. Seizures. SURGICAL HISTORY : None. ENCOUNTER: Initial ACUITY: 3 days PAIN SCALE: 5/10 LOCATION: cranial TECHNIQUE: Multiple contiguous axial images were obtained of the head. Using automated exposure control and adj ustment of the mA and/or kV according to patient size, radiation dose was kept as low as reasonably a chievable to obtain optimal diagnostic quality images. DICOM format image data is available electro nically for review and comparison. FINDINGS: CEREBRUM: The ventricles are normal for age. No evidence of midline shift, mass lesion, hemorrhage or acute in farction. No extra-axial fluid collections are seen. POSTERIOR FOSSA: The cerebellum and brainstem are intact. The 4th ventricle is midline. The cerebellopontine angle i s unremarkable. EXTRACRANIAL: The visualized portion of the orbits is intact. SKULL: The calvaria is intact. No evidence of skull fracture. CONCLUSION: No acute intracranial findings. Rudy Palafox MD on January 10, 2018 at 3:35 Board Certified Radiologist. This report was verified electronically.
[2018-01-10 03:42] LABS: INTERNATIONAL NORMALIZED RATIO 1.1 RATIO; PROTHROMBIN TIME - PATIENT 10.7 SEC (9.8-11.6)
--- NOTE | 2018-01-10 03:57 | RADRPT ---
EXAM DATE/TIME: 01/10/2018 03:30 [facility] COMPARISON: CHEST SINGLE AP, January 21, 2016, 10:33. INDICATIONS : Chest pain and shortness of breath. MEDICAL HISTORY : Hypercholesterolemia. Seizures, Hypertension, Bronchitis, Asthma, Diabetes. SURGICAL HISTORY : None. ENCOUNTER: Initial ACUITY: 3 days PAIN SCORE: 10/10 LOCATION: Bilateral chest FINDINGS: Single AP view of the chest. The lungs are clear. Cardiomediastinal silhouette within normal limits. No evidence of pleural effusion or pneumothorax. CONCLUSION: No acute cardiopulmonary disease identified. Rudy Palafox MD on January 10, 2018 at 3:53 Board Certified Radiologist. This report was verified electronically.
[2018-01-10 04:16] LABS: ALT (GPT) 33 U/L (12-78); AST (GOT) 34 U/L (15-37); BICARBONATE 27.9 MEQ/L (21.0-32.0); BLOOD UREA NITROGEN 14 MG/DL (7-18); CALCIUM 8.5 MG/DL (8.5-10.1); CHLORIDE 105 MEQ/L (98-107); CREATININE 1.16 MG/DL (0.60-1.30); GLOMERULAR FILTRATION RATE 83 ML/MIN (>89); GLUCOSE,RANDOM 95 MG/DL (74-106); SODIUM (NA) 139 MEQ/L (136-145)
[2018-01-10 04:26] LABS: ACETAMINOPHEN LESS THAN 2.0 MCG/ML (10.0-30.0); ALKALINE PHOSPHATASE 80 U/L (45-117); TOTAL BILIRUBIN ADULT 0.4 MG/DL (0.2-1.0); TOTAL PROTEIN 7.7 GM/DL (6.4-8.2); TROPONIN I LESS THAN 0.02 NG/ML (0.02-0.05)
[2018-01-10 05:35] LABS: BILIRUBIN, URINE NEG (NEG); BLOOD, URINE NEG (NEG); GLUCOSE,URINE NEG (NEG); KETONE, URINE 10 mg/dL (NEG); NITRITE,URINE NEG (NEG); PH, URINE 5.5 (5.0-8.5); URINE COLOR LIGHT-YELLOW (YELLW/STRAW); URINE LEUKOCYTE ESTERASE NEG (NEG)
[2018-01-10] MEDS ORDERED: GADODIAMIDE PF 287 MG/ML 20 ML VIAL (for RAD MRI) IVCONTRAST ONE (06:09)
--- NOTE | 2018-01-10 08:48 | EKG ---
Date Performed: 01/10/2018 Time Performed: 03:07:50 PTAGE: 47 years EKG: Sinus rhythm T-WAVE ABNORMALITY, NONSPECIFIC ABNORMAL ECG PREVIOUS TRACING : 12/14/2017 11.36 No significant change from previous tracing noted. DOCTOR: Gary Barlow Interpretating Date/Time 01/10/2018 08:46:24
[2018-01-10] MEDS: SODIUM CHLORIDE 0.9% FLUSH 10 ML FLUSH IV FLUSH SCH ×2 (09:00→23:10)
--- NOTE | 2018-01-10 09:28 | HHI.HP ---
HPI Service Chest pain center Primary Care Physician Stefan Sanches D.O. Chief Complaint Headaches Absence seizures Chest pain History of Present Illness 47-year-old black male presented to the emergency room with complaints of severe headache for 2-1/2-3 days. He also complained of upper chest pain and was transferred to chest pain center without further evaluation of his seizures , headaches or other issues. Chest pain is clearly musculoskeletal, protocol ruled out ACS, and he is not a candidate for further stress testing due to his underlying problems. Review of his history will show multiple presentations to the emergency room. He has been diagnosed with absence seizures but has been noncompliant with medication. His is been noting that he has been experiencing recurrent seizures coincide with the presence of the headache. There is also a question of loss of consciousness and episodes of dizziness and loss of balance. He also reportedly has a history of migraine which is also not being treated currently. In addition he complains of a nosebleed yesterday. His chest pain is bilateral upper chest, constant, 8 out of 10, pleuritic, and exquisitely painful to touch. All of this may further be complicated by the fact that he is looking for a disability related to his seizures and visual problems. He does complain of loss of peripheral vision and of tunnel vision as well as the issues noted above. Before further cardiovascular evaluation can be carried out the above issues need to be evaluated and resolved. Review of Systems Consitutional: COMPLAINS OF: Fatigue Eyes: COMPLAINS OF: Change in vision HEENT: COMPLAINS OF: Lightheadedness Cardiovascular: COMPLAINS OF: See HPI Neurologic: COMPLAINS OF: Poor Balance Musculoskeletal: COMPLAINS OF: Muscle pain Past Family Social History Allergies: Coded Allergies: Iodinated Contrast- Oral and IV Dye (Unverified Allergy, Severe, SOB, SWELLING, 01/10/18) diatrizoate meglumine (Unverified Allergy, Severe, SOB, SWELLING, 01/10/18) gadobenic acid (Unverified Allergy, Severe, SOB, SWELLING, 01/10/18) gadodiamide (Unverified Allergy, Severe, SOB, SWELLING, 01/10/18) gadoteridol (Unverified Allergy, Severe, SOB, SWELLING, 01/10/18) iodixanol (Unverified Allergy, Severe, SOB, SWELLING, 01/10/18) iohexol (Unverified Allergy, Severe, SOB, SWELLING, 01/10/18) shellfish derived (Unverified Allergy, Severe, LIPS SWELL, 01/10/18) Past Medical History Migraine Absence seizures Glaucoma Asthma Diabetes Hypertension Past Surgical History None Reported Medications Reported Meds & Active Scripts Active Ipratropium Neb (Ipratropium [place]) 0.5 Mg/2.5 Ml Amp 0.5 Mg NEB Q6HR NEB PRN Albuterol Neb (Albuterol Sulfate) 2.5 Mg/3 Ml Neb 2.5 Mg NEB QID NEB Ventolin Hfa 18 GM Inh (Albuterol Sulfate) 90 Mcg/Act Aer 2 Puff INH Q4-6H PRN Reported Cetirizine (Cetirizine HCl) 10 Mg Tab 10 Mg PO DAILY Symbicort Inh (Budesonide/Formoterol Fumarate) 160-4.5 Mcg/Act Aero 1 Puff INH Q12HR Proair Hfa 8.5 GM Inh (Albuterol Sulfate) 90 Mcg/Act Aer 2 Puff INH Q4-6H PRN 108 mcg/actuation Active Ordered Medications Current Medications Medications (Trade) Dose Ordered Sig/[place] Route Start Time Stop Time Status Last Admin (NS Flush) 2 ml UNSCH PRN IV FLUSH 01/10/18 03:15 (NS Flush) 2 ml UNSCH PRN IV FLUSH 01/10/18 06:45 (NS Flush) 2 ml BID IV FLUSH 01/10/18 09:00 Family History Not obtained Social History Unemployed applying for disability No tobacco and denies substance abuse for 3 years Does use moderate alcohol Physical Exam Vital Signs Vital Signs Date Time Temp Pulse Resp B/P (MAP) Pulse Ox O2 Delivery O2 Flow Rate FiO2 01/10/18 08:01 01/10/18 07:59 97.9 70 18 132/82 (99) 98 01/10/18 07:06 66 18 100 Room Air 01/10/18 07:06 75 18 100 Room Air 01/10/18 07:06 67 18 167/89 (115) 100 Room Air 01/10/18 06:36 100 01/10/18 02:42 97.6 69 22 163/99 (120) 100 Physical Exam Well-nourished somewhat muscular black male resting quietly until I entered room when he complained immediately of headache Head normocephalic atraumatic without bruits Eyes PERRLA EOMI conjunctiva are not injected funduscopic exam deferred Mouth mucous membranes moist and well papillated good dentition no lesions noted Neck supple no JVD masses nodes or bruits Chest reveals exquisite tenderness to light touch over the upper chest wall both right and left. Breath sounds intact with no rales wheezes or rhonchi Cardiovascular reveals a regular sinus rhythm without gallop rub or murmur Abdomen soft nontender Extremities no clubbing cyanosis or edema Neurologic cranial nerves are intact 3,4,5,6,7,8, 12. Gross motor intact to all 4 extremities balance proprioception and pinprick not tested Mood appears to be somewhat withdrawn but apprehensive, memory is intact, judgment not evaluated Laboratory Laboratory Tests Test 01/10/18 03:14 01/10/18 03:20 01/10/18 05:00 01/10/18 08:20 Blood Urea Nitrogen 14 Creatinine 1.16 Random Glucose 95 Total Protein 7.7 Albumin 4.0 Calcium Level 8.5 Alkaline Phosphatase 80 Aspartate Amino Transf (AST/SGOT) 34 Alanine Aminotransferase (ALT/SGPT) 33 Total Bilirubin 0.4 Sodium Level 139 Potassium Level 4.4 Chloride Level 105 Carbon Dioxide Level 27.9 Anion Gap 6 Estimat Glomerular Filtration Rate 83 Total Creatine Kinase 697 Creatine Kinase MB 8.3 Creatine Kinase MB % 1.2 Troponin I LESS THAN 0.02 Thyroid Stimulating Hormone 3rd Gen 1.860 Salicylates Level LESS THAN 1.7 Acetaminophen Level LESS THAN 2.0 Ethyl Alcohol Level LESS THAN 3 White Blood Count 4.6 Red Blood Count 5.35 Hemoglobin 16.2 Hematocrit 48.0 Mean Corpuscular Volume 89.8 Mean Corpuscular Hemoglobin 30.3 Mean Corpuscular Hemoglobin Concent 33.7 Red Cell Distribution Width 14.0 Platelet Count 215 Mean Platelet Volume 9.1 Neutrophils (%) (Auto) 27.9 Lymphocytes (%) (Auto) 58.6 Monocytes (%) (Auto) 10.8 Eosinophils (%) (Auto) 2.2 Basophils (%) (Auto) 0.5 Neutrophils # (Auto) 1.3 Lymphocytes # (Auto) 2.7 Monocytes # (Auto) 0.5 Eosinophils # (Auto) 0.1 Basophils # (Auto) 0.0 CBC Comment DIFF FINAL Differential Comment Prothrombin Time 10.7 Prothromb Time International Ratio 1.1 Activated Partial Thromboplast Time 27.4 Ammonia 15 Urine Color LIGHT-YELLOW Urine Turbidity CLEAR Urine pH 5.5 Urine Specific [place] 1.027 Urine Protein NEG Urine Glucose (UA) NEG Urine Ketones 10 Urine Occult Blood NEG Urine Nitrite NEG Urine Bilirubin NEG Urine Urobilinogen LESS THAN 2.0 Urine Leukocyte Esterase NEG Urine WBC LESS THAN 1 Microscopic Urinalysis Comment CATH-CULT NOT IND Urine Opiates Screen NEG Urine Barbiturates Screen NEG Urine Amphetamines Screen NEG Urine Benzodiazepines Screen NEG Urine Cocaine Screen NEG Urine Cannabinoids Screen NEG Result Diagram: 01/10/18 0320 01/10/18 0314 Imaging Chest x-ray and CT of the head were negative Course Patient's current chest pain is clearly musculoskeletal and not cardiac in origin. However he does have risk factors for cardiac disease and further cardiac evaluation would be appropriate but cannot be carried out until his neurologic status has been fully evaluated and stabilized. Patient appears to be noncompliant with medications for his seizures and migraines and possibly glaucoma. May be secondary gain involved in the day seeking disability. Further evaluation beyond capacity of the chest pain center will be necessary at this time. Patient will be admitted for further inpatient evaluation clarification and documentation of his condition. Caprini VTE Risk Assessment Caprini VTE Risk Assessment: No/Low Risk (score <= 1) Caprini Risk Assessment Model Point Value = 1 Point Value = 2 Point Value = 3 Point Value = 5 Age 41-60 Minor surgery BMI > 25 kg/m2 Swollen legs Varicose veins or History of unexplained or recurrent spontaneous Oral contraceptives or hormone replacement Sepsis (< 1 month) Serious lung disease, including pneumonia (< 1 month) Abnormal pulmonary function Acute myocardial infarction Congestive heart failure (< 1 month) History of inflammatory bowel disease Medical patient at bed rest Age 61-74 Arthroscopic surgery Major open surgery (> 45 min) Laparoscopic surgery (> 45 min) Malignancy Confined to bed (> 72 hours) Immobilizing plaster cast Central venous access Age >= 75 History of VTE Family history of VTE Factor V Leiden Prothrombin [id number] Lupus anticoagulant Anticardiolipin antibodies Elevated serum homocysteine Heparin-induced thrombocytopenia Other congenital or acquired thrombophilia Stroke (< 1 month) Elective arthroplasty Hip, pelvis, or leg fracture Acute spinal cord injury (< 1 month) Prophylaxis Regimen Total Risk Factor Score Risk Level Prophylaxis Regimen 0-1 Low Early ambulation 2 Moderate Order ONE of the following: *Sequential Compression Device (SCD) *Heparin 5000 units SQ BID 3-4 Higher Order ONE of the following medications: *Heparin 5000 units SQ TID *Enoxaparin/Lovenox 40 mg SQ daily (WT < 150 kg, CrCl > 30 mL/min) *Enoxaparin/Lovenox 30 mg SQ daily (WT < 150 kg, CrCl > 10-29 mL/min) *Enoxaparin/Lovenox 30 mg SQ BID (WT < 150 kg, CrCl > 30 mL/min) AND/OR *Sequential Compression Device (SCD) 5 or more Highest Order ONE of the following medications: *Heparin 5000 units SQ TID (Preferred with Epidurals) *Enoxaparin/Lovenox 40 mg SQ daily (WT < 150 kg, CrCl > 30 mL/min) *Enoxaparin/Lovenox 30 mg SQ daily (WT < 150 kg, CrCl > 10-29 mL/min) *Enoxaparin/Lovenox 30 mg SQ BID (WT < 150 kg, CrCl > 30 mL/min) AND *Sequential Compression Device (SCD) Assessment and Plan Problem List: (1) Headache ICD Codes: R51 - Headache Status: Acute Plan: Patient's current headache may be migraine but because of duration other etiologies strongly suggested particularly in view of the coincidence of recurring seizure disorder over the site same time frame (2) Cephalgia ICD Codes: R51 - Headache Status: Acute (3) Seizure disorder ICD Codes: G40.909 - Epilepsy, unspecified, not intractable, without status epilepticus Status: Acute (4) Spells of decreased attentiveness ICD Codes: R68.89 - Other general symptoms and signs Status: Acute (5) Peripheral vision loss ICD Codes: H53.459 - Other localized visual field defect, unspecified eye Status: Chronic (6) Vision loss ICD Codes: H54.7 - Unspecified visual loss Status: Chronic (7) Chest pain ICD Codes: R07.9 - Chest pain, unspecified Status: Acute Plan: Current chest pain is clearly musculoskeletal but further evaluation would be appropriate once his headache is controlled, blood pressure controlled , seizure disorder under control, and evaluation of other complaints ruled out. Problem Qualifiers (1) Headache: Qualified Codes: R51 - Headache (2) Cephalgia: (3) Chest pain: Qualified Codes: R07.9 - Chest pain, unspecified StoneHarshad jang MD Jan 10, 2018 09:28
[2018-01-10 09:34] LABS: TROPONIN I LESS THAN 0.02 NG/ML (0.02-0.05)
--- NOTE | 2018-01-10 09:41 | PD.CONS ---
[facility] Requested By DR. CYNDI HAYS Reason for Consult Medical management Primary Care Physician Stefan Sanches D.O. Diagnoses: History of Present Illness This is a pleasant 47 y/o Male with history of Seizure disorder, who was admitted due to Chest pain, atypical followed by learning design specialist Doctor Daisy, he will follow Stress test but his chest pain is reproducible, left parasternal chest pain, for the last two days, also complaint of headache, History of Migraines as a child. the Headache is been there for the last 2 to 3 days. As per patient started with Chest pain, on left parasternal area, no radiated, 8 /10 in intensity, as Oppressive sensation, then minutes later started with Headache on Left parietal and temporal area, as pulsatile sensation, 10/10 in intensity, non associated nausea and vomit but before coming to er Had one episode of absence Seizure, epistaxis and dizziness. he was seen in the past by Neurology specialist Doctor Daniel. Review of Systems Constitutional: DENIES: Fever, Chills, Change in appetite Endocrine: DENIES: Heat/cold intolerance Eyes: DENIES: Blurred vision, Eye pain Cardiovascular: COMPLAINS OF: Chest pain Neurologic: COMPLAINS OF: Headache Except as stated in HPI: all other systems reviewed are Neg Past Family Social History Allergies: Coded Allergies: Iodinated Contrast- Oral and IV Dye (Unverified Allergy, Severe, SOB, SWELLING, 01/10/18) diatrizoate meglumine (Unverified Allergy, Severe, SOB, SWELLING, 01/10/18) gadobenic acid (Unverified Allergy, Severe, SOB, SWELLING, 01/10/18) gadodiamide (Unverified Allergy, Severe, SOB, SWELLING, 01/10/18) gadoteridol (Unverified Allergy, Severe, SOB, SWELLING, 01/10/18) iodixanol (Unverified Allergy, Severe, SOB, SWELLING, 01/10/18) iohexol (Unverified Allergy, Severe, SOB, SWELLING, 01/10/18) shellfish derived (Unverified Allergy, Severe, LIPS SWELL, 01/10/18) Past Medical History COPD CAD Hyperlipidemia DM II Hypertension Bilateral knee pain, chronic pain Absence seizures Past Surgical History Denies any surgical history Reported Medications Reported Meds & Active Scripts Active Ipratropium Neb (Ipratropium Emery) 0.5 Mg/2.5 Ml Amp 0.5 Mg NEB Q6HR NEB PRN Albuterol Neb (Albuterol Sulfate) 2.5 Mg/3 Ml Neb 2.5 Mg NEB QID NEB Ventolin Hfa 18 GM Inh (Albuterol Sulfate) 90 Mcg/Act Aer 2 Puff INH Q4-6H PRN Reported Cetirizine (Cetirizine HCl) 10 Mg Tab 10 Mg PO DAILY Symbicort Inh (Budesonide/Formoterol Fumarate) 160-4.5 Mcg/Act Aero 1 Puff INH Q12HR Proair Hfa 8.5 GM Inh (Albuterol Sulfate) 90 Mcg/Act Aer 2 Puff INH Q4-6H PRN 108 mcg/actuation Active Ordered Medications Current Medications Medications (Trade) Dose Ordered Sig/[place] Route Start Time Stop Time Status Last Admin (NS Flush) 2 ml UNSCH PRN IV FLUSH 01/10/18 03:15 (NS Flush) 2 ml UNSCH PRN IV FLUSH 01/10/18 06:45 (NS Flush) 2 ml BID IV FLUSH 01/10/18 09:00 Family History Unemployed applying for disability No tobacco and denies substance abuse for 3 years Does use moderate alcohol Social History Alcohol abuse Physical Exam Vital Signs Vital Signs Date Time Temp Pulse Resp B/P (MAP) Pulse Ox O2 Delivery O2 Flow Rate FiO2 01/10/18 08:01 01/10/18 07:59 97.9 70 18 132/82 (99) 98 01/10/18 07:06 66 18 100 Room Air 01/10/18 07:06 75 18 100 Room Air 01/10/18 07:06 67 18 167/89 (115) 100 Room Air 01/10/18 06:36 100 01/10/18 02:42 97.6 69 22 163/99 (120) 100 Physical Exam GENERAL: Well-developed, well-nourished, no acute distress. SKIN: Focused skin assessment warm/dry. No rash. HEAD: Atraumatic. Normocephalic. EYES: Pupils equal and round. No scleral icterus. No injection or drainage. ENT: No nasal bleeding or discharge. Mucous membranes pink and moist. NECK: Trachea midline. No JVD. No nuchal rigidity. CARDIOVASCULAR: Regular rate and rhythm. reproducible exquisite pain on palpation on left parasternal area. RESPIRATORY: No accessory muscle use. Clear to auscultation. Breath sounds equal bilaterally. GASTROINTESTINAL: Abdomen soft, non-tender, nondistended. MUSCULOSKELETAL: No obvious deformities. No clubbing. No cyanosis. No edema. NEUROLOGICAL: Awake and alert. No obvious cranial nerve deficits. Motor grossly within normal limits. Normal speech. No focal deficits. PSYCHIATRIC: Appropriate mood and affect; insight and judgment normal. Laboratory Laboratory Tests Test 01/10/18 03:14 01/10/18 03:20 01/10/18 05:00 01/10/18 08:20 Blood Urea Nitrogen 14 Creatinine 1.16 Random Glucose 95 Total Protein 7.7 Albumin 4.0 Calcium Level 8.5 Alkaline Phosphatase 80 Aspartate Amino Transf (AST/SGOT) 34 Alanine Aminotransferase (ALT/SGPT) 33 Total Bilirubin 0.4 Sodium Level 139 Potassium Level 4.4 Chloride Level 105 Carbon Dioxide Level 27.9 Anion Gap 6 Estimat Glomerular Filtration Rate 83 Total Creatine Kinase 697 Creatine Kinase MB 8.3 Creatine Kinase MB % 1.2 Troponin I LESS THAN 0.02 Thyroid Stimulating Hormone 3rd Gen 1.860 Salicylates Level LESS THAN 1.7 Acetaminophen Level LESS THAN 2.0 Ethyl Alcohol Level LESS THAN 3 White Blood Count 4.6 Red Blood Count 5.35 Hemoglobin 16.2 Hematocrit 48.0 Mean Corpuscular Volume 89.8 Mean Corpuscular Hemoglobin 30.3 Mean Corpuscular Hemoglobin Concent 33.7 Red Cell Distribution Width 14.0 Platelet Count 215 Mean Platelet Volume 9.1 Neutrophils (%) (Auto) 27.9 Lymphocytes (%) (Auto) 58.6 Monocytes (%) (Auto) 10.8 Eosinophils (%) (Auto) 2.2 Basophils (%) (Auto) 0.5 Neutrophils # (Auto) 1.3 Lymphocytes # (Auto) 2.7 Monocytes # (Auto) 0.5 Eosinophils # (Auto) 0.1 Basophils # (Auto) 0.0 CBC Comment DIFF FINAL Differential Comment Prothrombin Time 10.7 Prothromb Time International Ratio 1.1 Activated Partial Thromboplast Time 27.4 Ammonia 15 Urine Color LIGHT-YELLOW Urine Turbidity CLEAR Urine pH 5.5 Urine Specific Clawson 1.027 Urine Protein NEG Urine Glucose (UA) NEG Urine Ketones 10 Urine Occult Blood NEG Urine Nitrite NEG Urine Bilirubin NEG Urine Urobilinogen LESS THAN 2.0 Urine Leukocyte Esterase NEG Urine WBC LESS THAN 1 Microscopic Urinalysis Comment CATH-CULT NOT IND Urine Opiates Screen NEG Urine Barbiturates Screen NEG Urine Amphetamines Screen NEG Urine Benzodiazepines Screen NEG Urine Cocaine Screen NEG Urine Cannabinoids Screen NEG Result Diagram: 01/10/18 0320 01/10/18313 Imaging Last Impressions Head CT 01/10/18313 Signed Impressions: Service Date/Time: Wednesday, January 10, 2018 03:22 - CONCLUSION: No acute intracranial findings. Rudy Palafox MD Chest X-Ray 01/10/18313 Signed Impressions: Service Date/Time: Wednesday, January 10, 2018 03:30 - CONCLUSION: No acute cardiopulmonary disease identified. Rudy Palafox MD Assessment and Plan Assessment and Plan 1. Atypical chest pain, on Cardiac monitoring, cardiac enzymes, Cardiology following, probable Stress test clear muscle skeletal by learning design specialist 2. Seizure disorder as per patient had an absence seizure before coming to ER, asked for EEG, Neurology specialist consult 3. Costochondritis on NSAIDs and Muscle relaxant 4. Chronic CK elevation will continue IV fluids by now and follow laboratory. 5. COPD continue bronchodilator, Mucolytic and Incentive spirometry 6. Hyperlipidemia asked for Lipid panel follow laboratory Neurology consult EEG start diet. nurse outreach case manager for discharge encourage ambulation. Code Status full code Discussed Condition With Patient, Nurse and Cardiology Fred Ramirez MD Jan 10, 2018 09:41
[2018-01-10 12:21] LABS: CHOLESTEROL/ HDL RATIO 4.2 RATIO; HDL CHOLESTEROL 48.3 MG/DL (40.0-60.0)
[2018-01-10 12:24] LABS: FOLATE GREATER THAN 20.0 NG/ML (3.1-17.5)
[2018-01-10 12:32] LABS: TROPONIN I LESS THAN 0.02 NG/ML (0.02-0.05)
[2018-01-10] MEDS: IBUPROFEN 600 MG TAB PO SCH ×2 (12:40→23:11)
[2018-01-10] MEDS: CYCLOBENZAPRINE HCL 10 MG TAB PO SCH ×2 (12:40→23:11)
[2018-01-10] MEDS: PANTOPRAZOLE SOD 40 MG DELAYED RELEASE TAB PO SCH (12:40)
[2018-01-10] MEDS: SODIUM CHLOR 0.9% 1000 ML INJ 1,000 ML IV SCH ×2 (12:40→23:10)
[2018-01-10] MEDS: RESP: ALBUTEROL 2.5 MG/IPRATROPIUM 0.5 MG NEB (SCH) NEB ×2 (15:13→20:16)
[2018-01-10] MEDS: DULoxetine HCl DR 30 MG CAP PO SCH (15:56)
--- NOTE | 2018-01-10 16:08 | EKG ---
Date Performed: 01/10/2018 Time Performed: 08:28:24 PTAGE: 47 years EKG: Sinus rhythm NORMAL ECG NO PREVIOUS TRACING DOCTOR: Gary Barlow Interpretating Date/Time 01/10/2018 16:06:53
--- NOTE | 2018-01-10 16:15 | MB ---
cc: Rory Sanchez MD DATE: 01/10/2018 HISTORY OF PRESENT ILLNESS: A 47-year-old man who I actually saw at [facility] in March of last year with a history of hypercholesterolemia. long history of headaches. When he was younger he is on Inderal, they seemed to go away and then come back 2 years prior. Excessive daytime sleepiness with what is likely narcolepsy where he falls asleep very easily and that has continued. I put him on some Depakote and he went home, but he has gained weight on it and thought it was making him like a zombie, so he stopped it. He was tried on some Lamictal by Dr. Acosta and it was stopped because he developed a rash. He was also tried on Fioricet for his headaches. It turned out he had glaucoma the last time he was in here and that probably was an explanation for a lot of his headaches. He had headaches at that time on the left side of his head and occasionally 7/10, throbbing headaches. He was a very heavy snorer. He has vision loss, was legally blind and that was from the glaucoma. His had noted that he was staring off back in March of 2017 three times a day going on for several years, seemed to be getting worse. A CAT scan was done which was normal. We restarted him on the Inderal as his blood pressure was up to 141/89. We asked Ophthalmology to see him. He had no more spells on Depakote. His MRI of the brain, MRA of the [place] and neck, MR venogram were all normal. EEG showed some right greater than left sharps on the report. He needed a B12 shot and we gave him one. His labs otherwise looked okay. He had some spells of again brief loss of conscious, so I started him on the Depakote for migraine or possible seizure. He seemed to have done pretty well. He still has the staring off and falling asleep. He has been seeing Dr. Acosta and a doctor over in [place] as his primary care doctor as that is who takes his insurance. He comes in now because he has felt lightheaded for a few days and he has had chest pain for 3 days. He had a nosebleed yesterday. 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 ALLERGIES: ALLERGIC TO CONTRAST DYE, IODINE, SHELLFISH. PREVIOUS MEDICATIONS: In the past, he was on some inhalers and Symbicort. PAST MEDICAL HISTORY: He denied any hypertension, diabetes, DC, CABG, cardiac arrhythmia, stent, angioplasty, A-Fib, Coumadin, renal, hepatic, pulmonary disease, thyroid disease, lupus, ulcer, cancer, seizure or stroke. FAMILY HISTORY: Negative for cancer, seizure or stroke. SOCIAL HISTORY: Not a smoker or drinker. Lives with his . He is on disability, has some chronic knee pain. MEDICATIONS: 1. He is on ipratropium. 2. Albuterol nebs. 3. Ventolin. 4. Azithromycin. 5. Prednisone pack. 6. Fioricet, though is no longer taking it. 7. Sertraline. 8. Zorvolex which is diclofenac 18 mg t.i.d. 9. Symbicort. 10. ProAir. EXAMINATION: VITAL SIGNS: On exam, blood pressures have been normal to slightly elevated, 163/99 initially, 129/71 now, pulse rate 80. Afebrile 66, 14. HEENT: I could not see his disks as the ophthalmoscope was not working. His visual begum are restricted, but he can read finger counts, but peripherally it is restricted and that is old. Face is symmetric with normal sensation. Tongue was midline. NEUROLOGICAL EXAMINATION: He gives a very poor effort throughout, but he has normal strength in upper and lower extremities bilaterally. Toes downgoing bilaterally. DTRs are absent throughout. Pinprick was intact throughout all four extremities and face. He is not ataxic on [id number]. Hallpike maneuver was negative bilaterally. He said when he stood up he felt lightheaded and we will have to check a standing blood pressure. He also said he felt a little bit of vertiginous symptoms, but Hallpike maneuver was negative. His gait was steady. LABORATORY DATA: EKG shows sinus rhythm. CBC is normal. Sedimentation rate was 1 in March of last year. He had an ABG at that time of 7.40, 45, 76. Basic metabolic profile: His creatinine here was 538. Troponin was negative. LDL is 137. Folate is normal. B12 is still low at 293; it was 250 six months ago. He had an SPEP in March which was normal. His B6 has been normal. Methylmalonic acid was normal back in March. CRP was essentially normal in March, just minimally elevated to 0.84. Ammonia level has been normal. LFTs have been normal. Magnesium normal back in March. Calcium normal. Coags have been normal. UA negative. Rheumatoid factor, BELEN, RPR all normal in March. IMAGING STUDIES: He had a CAT scan of the brain here that was read as negative. He had a chest x-ray that was negative. He had an MRI of the brain, which was normal back in March. HE had an MRA of the [place] that was normal. An MR venogram was also normal. An MRA of the neck also normal. He had an EEG in March, showed possibly some sharp waves on the right more than the left by report. He did see Dr. Denson in Cardiology on this admission, thought he had atypical chest pain, COPD, hyperlipidemia. IMPRESSIONS AND RECOMMENDATIONS: I am not so sure these are so much seizures as they are narcolepsy that he has had and he should get a sleep study outpatient and an MSLT which will look for narcolepsy. He does see Dr. Acosta and he is supposed to see him next month and I have asked him to do that. The patient is currently not driving. We will recheck his MRI of the brain and an EEG, check some standing blood pressures with the lightheadedness. He has had a fairly complete workup in March which showed what appeared to be slightly abnormal EEG and I will review those films. I noted his CPK was elevated in 2016 and continues to be elevated. He may have a slight metabolic myopathy, but overall, I thought he looked well, neurologically here. As for his headaches, I would recommend that he see Ophthalmology here to make sure that his eye pressures are not elevated causing the headache. I would recommend the med team consult Ophthalmology with the history of glaucoma and we will check a standing blood pressure on that patient also. He seems to be a bit depressed and an antidepressant may help his narcolepsy. I would like to start him on some Cymbalta at this time as he has a lot of aches and pains in his shoulders, his ankles and his head. MD AMINAH Shepherd/RODY , 03:35 PM , 04:13 PM
--- NOTE | 2018-01-10 17:54 | RADRPT ---
EXAM DATE/TIME: 01/10/2018 16:59 [facility] COMPARISON: MRI BRAIN W & W/O CONTRAST, April 03, 2017, 17:39. INDICATIONS : Cephalgia. Seizure. CONTRAST: 18 cc Omniscan (gadodiamide) IV MEDICAL HISTORY : None. SURGICAL HISTORY : None. ENCOUNTER: Initial ACUITY: 1 day PAIN SCORE: 5/10 LOCATION: Left cranial TECHNIQUE: Multiplanar, multisequence MRI of the brain was performed both prior to and following the administrat ion of paramagnetic contrast. FINDINGS: CEREBRUM: The ventricles are normal for age. No evidence of midline shift, mass lesion, hemorrhage or acute in farction. No extraaxial fluid collections are seen. The pituitary gland and suprasellar cistern are normal in configuration. WHITE MATTER: No significant signal abnormalities are seen in the white matter. POSTERIOR FOSSA: The cerebellum and brainstem are intact. The 4th ventricle is midline. The cerebellopontine angle is unremarkable. The cerebellar tonsils are normal in position. DIFFUSION IMAGING: No focal areas of restricted diffusion are seen. No evidence of acute infarction. EXTRACRANIAL: The visualized portions of the orbits and paranasal sinuses are unremarkable. POST-CONTRAST: No abnormal areas of parenchymal or dural enhancement. No evidence of blood-brain barrier breakdown. CONCLUSION: 1. Negative MRI of the brain with and without contrast. Carlton Uriarte MD on January 10, 2018 at 17:50 Board Certified Radiologist. This report was verified electronically.
--- NOTE | 2018-01-10 20:07 | MG ---
cc: Rory Sanchez MD, David J MD EEG #[id number] INDICATIONS: Left-sided headaches. INTERPRETATION: A 10 Hz, 60 microvolt symmetric posterior and diffuse rhythm is seen. The recording overall is synchronous and symmetric. Some beta rhythms are seen over the bilateral temporal head regions. He is noted to be awake and some sharply contoured alpha waves are seen over the right central head region and really bilaterally, which on the transverse montage, appeared to have a phase reversal in the midline of the head and appears that he is actually in stage II sleep, with some vertex sharp waves seen there also. IMPRESSION: A normal primarily stage II sleep electroencephalogram. There were some prominent higher amplitude beta rhythms seen on the bitemporal head regions, but it was all in his sleep and I think it indicates a sleep variant in this patient. I did not see any definite seizure activity or hemisphere asymmetry. Rory Harrison. MD AMINAH Sanchez// , 07:35 PM , 07:46 PM
[2018-01-10] MEDS: guaiFENesin E.R. 600 MG TAB PO SCH (23:11)
[2018-01-11] VITALS (9 sets, daily range): BP systolic 110–155; BP diastolic 71–96; PULSE 57–78; RESP 16–18; TEMP 96.5–98.7; O2SAT 95–97
[2018-01-11] MEDS: BUDESONIDE-FORMOTEROL 160/4.5 MCG INHALER INH SCH ×3 (00:41→22:54)
[2018-01-11] MEDS: RESP: ALBUTEROL 2.5 MG/IPRATROPIUM 0.5 MG NEB (SCH) NEB ×4 (03:47→19:42)
[2018-01-11] MEDS: CYCLOBENZAPRINE HCL 10 MG TAB PO SCH ×3 (07:58→22:55)
[2018-01-11] MEDS: SODIUM CHLOR 0.9% 1000 ML INJ 1,000 ML IV SCH ×2 (07:59→18:02)
[2018-01-11] MEDS: IBUPROFEN 600 MG TAB PO SCH ×3 (07:59→22:56)
[2018-01-11] MEDS: SODIUM CHLORIDE 0.9% FLUSH 10 ML FLUSH IV FLUSH SCH ×2 (09:00→22:55)
--- NOTE | 2018-01-11 10:22 | HHI.PR ---
Subjective Remarks still wi th lyle Objective Vital Signs Date Time Temp Pulse Resp B/P (MAP) Pulse Ox O2 Delivery O2 Flow Rate FiO2 01/11/18 08:32 65 129/83 (98) 139/91 (107) 01/11/18 08:30 97.9 67 18 118/77 (91) 96 01/11/18 04:49 98.0 77 16 110/71 (84) 97 01/11/18 00:22 96.5 76 18 140/88 (105) 97 01/10/18 21:18 98.2 82 18 127/71 (89) 96 01/10/18 20:19 99 01/10/18 18:04 98.8 75 16 136/88 (104) 96 162/101 (121) 191/108 (135) 01/10/18 13:27 71 01/10/18 13:18 98.2 66 14 129/71 (90) 98 01/10/18 10:47 97.6 72 14 146/83 (104) 98 I/O 01/10/18 01/10/18 01/10/18 01/11/18 01/11/18 01/11/18 07:00 15:00 23:00 07:00 15:00 23:00 # Voids 1 Result Diagram: 01/10/18 0320 01/10/18 0314 Objective Remarks awake alert moves all well speech ok Assessment and Plan Assessment and Plan imp bp stand not low too high actually eeg nl mri neg crp and esr nl b12 shot ? statin but cpk inc optho pend ok dc and fu dr mijares if optho clears Rory Sanchez MD Jan 11, 2018 10:22
--- NOTE | 2018-01-11 10:42 | PD.CONS ---
History of Present Illness Service Ophthalmology Consult Requested By Reason for Consult glaucoma Primary Care Physician Stefan Sanches D.O. Diagnoses: History of Present Illness 47 yo BM with h/o seizures, glaucoma, and migraines presented to the emergency room with complaints of severe headache for 2-3 days and chest pain. Ophthalmology called to evaluate his glaucoma. Patient has a history of open angle glaucoma that is treated by Dr. Harish Benito and Dr.Tom Guerrero. He does not complain of any new vision problems or pain in his eyes. He takes brimonidine BID OU. Past Family Social History Allergies: Coded Allergies: Iodinated Contrast- Oral and IV Dye (Unverified Allergy, Severe, SOB, SWELLING, 01/10/18) diatrizoate meglumine (Unverified Allergy, Severe, SOB, SWELLING, 01/10/18) gadobenic acid (Unverified Allergy, Severe, SOB, SWELLING, 01/10/18) gadodiamide (Unverified Allergy, Severe, SOB, SWELLING, 01/10/18) gadoteridol (Unverified Allergy, Severe, SOB, SWELLING, 01/10/18) iodixanol (Unverified Allergy, Severe, SOB, SWELLING, 01/10/18) iohexol (Unverified Allergy, Severe, SOB, SWELLING, 01/10/18) shellfish derived (Unverified Allergy, Severe, LIPS SWELL, 01/10/18) Physical Exam Vital Signs Vital Signs Date Time Temp Pulse Resp B/P (MAP) Pulse Ox O2 Delivery O2 Flow Rate FiO2 01/11/18 08:32 65 129/83 (98) 139/91 (107) 01/11/18 08:30 97.9 67 18 118/77 (91) 96 01/11/18 04:49 98.0 77 16 110/71 (84) 97 01/11/18 00:22 96.5 76 18 140/88 (105) 97 01/10/18 21:18 98.2 82 18 127/71 (89) 96 01/10/18 20:19 99 01/10/18 18:04 98.8 75 16 136/88 (104) 96 162/101 (121) 191/108 (135) 01/10/18 13:27 71 01/10/18 13:18 98.2 66 14 129/71 (90) 98 01/10/18 10:47 97.6 72 14 146/83 (104) 98 Physical Exam Va cc at near OD 20/200, OS 20/200 EOM full OU, no diplopia CVF limited OU Pupils 2-1 no APD OU IOP 11, 6 mm Hg Anterior exam OD - normal eyelid, C/S W&Q, K clear, AC deep, pupil round, lens clear OS - normal eyelid, C/S W&Q, K clear, AC deep, pupil round, lens clear Laboratory Laboratory Tests Test 01/10/18 11:08 01/10/18 19:38 01/11/18 07:35 Hemoglobin A1c 6.0 Total Creatine Kinase 538 362 Creatine Kinase MB 6.5 3.2 Creatine Kinase MB % 1.2 0.9 Troponin I LESS THAN 0.02 C-Reactive Protein LESS THAN 0.29 Triglycerides Level 91 Cholesterol Level 203 LDL Cholesterol 137 HDL Cholesterol 48.3 Cholesterol/HDL Ratio 4.20 Vitamin B12 Level 293 Folate GREATER THAN 20.0 Erythrocyte Sedimentation Rate 1 Result Diagram: 01/10/18 0320 01/10/18 0314 Assessment and Plan Problem List: (1) Primary open angle glaucoma (POAG) of both eyes ICD Codes: H40.1130 - Primary open-angle glaucoma, bilateral, stage unspecified Plan: Intraocular pressure well controlled on brimonidine BID OU. Continue drops. Follow up with outpatient ophthalmologists once discharged. Yarelis Sheppard MD Jan 11, 2018 10:42
[2018-01-11] MEDS: CETIRIZINE HCL 10 MG TAB PO SCH (11:11)
[2018-01-11] MEDS: DULoxetine HCl DR 30 MG CAP PO SCH (11:11)
[2018-01-11] MEDS: guaiFENesin E.R. 600 MG TAB PO SCH ×2 (11:11→22:55)
[2018-01-11] MEDS: PANTOPRAZOLE SOD 40 MG DELAYED RELEASE TAB PO SCH (11:12)
[2018-01-11] MEDS: CYANOCOBALAMIN 1000 MCG/ML VIAL SQ SCH (11:15)
[2018-01-11] MEDS ORDERED: ACETAMINOPHEN/HYDROcodone 325 MG/5 MG TAB PO PRN (11:30)
--- NOTE | 2018-01-11 15:34 | HHI.PR ---
Subjective Remarks The patient states that he still has a headache on the left side of the head. Still complaining of chest pain which is worsened by taking deep breaths and by palpation of the area. Denies fevers or chills. Pressure for the most time has been within normal range with episodic peaks into the systolics 160s-190s. Objective Vitals Vital Signs Date Time Temp Pulse Resp B/P (MAP) Pulse Ox O2 Delivery O2 Flow Rate FiO2 01/11/18 12:30 97.9 78 18 126/74 (91) 95 134/86 (102) 155/93 (113) 01/11/18 08:32 65 129/83 (98) 139/91 (107) 01/11/18 08:30 97.9 67 18 118/77 (91) 96 01/11/18 08:10 57 01/11/18 04:49 98.0 77 16 110/71 (84) 97 01/11/18 00:22 96.5 76 18 140/88 (105) 97 01/10/18 21:18 98.2 82 18 127/71 (89) 96 01/10/18 20:19 99 01/10/18 18:04 98.8 75 16 136/88 (104) 96 162/101 (121) 191/108 (135) I/O 01/10/18 01/10/18 01/10/18 01/11/18 01/11/18 01/11/18 07:00 15:00 23:00 07:00 15:00 23:00 # Voids 1 Result Diagram: 01/10/18 0320 01/10/18313 Imaging Last Impressions Brain MRI 01/10/18 1532 Signed Impressions: Service Date/Time: Wednesday, January 10, 2018 16:59 - CONCLUSION: 1. Negative MRI of the brain with and without contrast. Carlton Uriarte MD Head CT 01/10/18313 Signed Impressions: Service Date/Time: Wednesday, January 10, 2018 03:22 - CONCLUSION: No acute intracranial findings. Rudy Palafox MD Chest X-Ray 01/10/18313 Signed Impressions: Service Date/Time: Wednesday, January 10, 2018 03:30 - CONCLUSION: No acute cardiopulmonary disease identified. Rudy Palafox MD Objective Remarks GENERAL: Well-developed, well-nourished, no acute distress. SKIN: Focused skin assessment warm/dry. No rash. HEAD: Atraumatic. Normocephalic. EYES: Pupils equal and round. No scleral icterus. No injection or drainage. ENT: No nasal bleeding or discharge. Mucous membranes pink and moist. NECK: Trachea midline. No JVD. No nuchal rigidity. CARDIOVASCULAR: Regular rate and rhythm. reproducible exquisite pain on palpation on left parasternal area. RESPIRATORY: No accessory muscle use. Clear to auscultation. Breath sounds equal bilaterally. GASTROINTESTINAL: Abdomen soft, non-tender, nondistended. MUSCULOSKELETAL: No obvious deformities. No clubbing. No cyanosis. No edema. There is tenderness to palpation of the chest in the substernal region and both right and left anterior chest. There are no fluid collections palpated. NEUROLOGICAL: Awake and alert. No obvious cranial nerve deficits. Motor grossly within normal limits. Normal speech. No focal deficits. PSYCHIATRIC: Appropriate mood and affect; insight and judgment normal. Medications and IVs Current Medications Medications (Trade) Dose Ordered Sig/Kameron Route Start Time Stop Time Status Last Admin (NS Flush) 2 ml UNSCH PRN IV FLUSH 01/10/18 03:15 (NS Flush) 2 ml UNSCH PRN IV FLUSH 01/10/18 06:45 (NS Flush) 2 ml BID IV FLUSH 01/10/18 09:00 01/10/18 23:10 Sodium Chloride 1,000 ml @ 100 mls/hr Q10H IV 01/10/18 11:00 01/11/18 07:59 (Motrin) 600 mg Q8HR PO 01/10/18 14:00 01/11/18 13:44 (Flexeril) 10 mg Q8HR PO 01/10/18 14:00 01/11/18 13:45 (Symbicort 160-4.5 Mcg Inh) 1 puff Q12HR INH 01/10/18 21:00 01/11/18 11:12 (ZyrTEC) 10 mg DAILY PO 01/11/18 09:00 01/11/18 11:11 (Duoneb Neb) 1 ampule Q6HR NEB NEB 01/10/18 16:00 01/10/18 20:16 (Mucinex Er) 600 mg BID PO 01/10/18 21:00 01/11/18 11:11 (Protonix) 40 mg DAILY PO 01/10/18 11:00 01/11/18 11:12 (Cymbalta Dr) 30 mg DAILY PO 01/10/18 15:45 01/11/18 11:11 (Vitamin B12 Inj) 1,000 mcg DAILY SQ 01/11/18 11:00 01/14/18 10:59 01/11/18 11:15 ([place] 5-325 Mg) 1 tab Q4H PRN PO 01/11/18 11:30 A/P Problem List: (1) Chest pain ICD Code: R07.9 - Chest pain, unspecified Status: Acute Plan: Cardiology consulted. Cardiac enzymes negative 3. EKG reviewed by me showed sinus rhythm without ST-T changes. Chest pain musculoskeletal, further evaluation is appropriate after headache, blood pressure,'s seizure disorder controlled. (2) Cephalgia ICD Code: R51 - Headache Status: Acute Plan: CT of the head did not show any acute intracranial findings. Neurology consulted. Appreciate recommendations. Recommend ophthalmology evaluation. Ophthalmology consulted. Recommendations pending. Miracle pain control with ibuprofen, Cymbalta and [place] as needed. I will give a trial of Imitrex for migraine headaches. (3) Seizure disorder ICD Code: G40.909 - Epilepsy, unspecified, not intractable, without status epilepticus Plan: Continue management as per neurology recommendations. EEG normal, MRI negative, CRP and ESR normal B12 shot. (4) Elevated CPK ICD Code: R74.8 - Abnormal levels of other serum enzymes Plan: Upon review of records patient's CPK has been elevated since 2016 where CPK was elevated at 640. CPK elevated at 697, trending down and IV fluids. We will continue IV fluids. (5) COPD (chronic obstructive pulmonary disease) ICD Code: J44.9 - Chronic obstructive pulmonary disease, unspecified Plan: Seems to be stable. Continue DuoNeb's, Mucinex ER. (6) Hyperlipidemia ICD Code: E78.5 - Hyperlipidemia, unspecified Status: Acute Plan: Lipid profile shows an elevated total cholesterol 203 and an LDL cholesterol of 137. Statin should be started, however CPK is elevated. Will hold on statin therapy. (7) Epistaxis ICD Code: R04.0 - Epistaxis Status: Resolved Plan: Patient states had episode of epistaxis which was supplemented. Coagulation studies normal with a PT of 10.7, INR 1.1, PTT 27.4 on 01/10/18. Continue to monitor. (8) Episode of hypertension ICD Code: I10 - Essential (primary) hypertension Status: Acute Plan: I will start the patient on hydrochlorothiazide 2.5 mg p.o. daily. Assessment and Plan GI prophylaxis: PPI. Discharge Planning Continue to monitor and the medical floor. Patient still with headache. Problem Qualifiers (1) Chest pain: Qualified Codes: R07.9 - Chest pain, unspecified (2) Cephalgia: (3) Hyperlipidemia: Qualified Codes: E78.5 - Hyperlipidemia, unspecified Iggy Medel MD Jan 11, 2018 15:34
[2018-01-11] MEDS ORDERED: HYDROCHLOROTHIAZIDE 12.5 MG CAP PO ONE (16:00)
[2018-01-11] MEDS ORDERED: SUMAtriptan SUCCINATE 20 MG/ACT NASAL SPRAY NASAL PRN (16:00)
[2018-01-12] VITALS (7 sets, daily range): BP systolic 106–147; BP diastolic 56–87; PULSE 58–86; RESP 16–18; TEMP 96.9–98.6; O2SAT 95–99
[2018-01-12] MEDS: RESP: ALBUTEROL 2.5 MG/IPRATROPIUM 0.5 MG NEB (SCH) NEB ×2 (02:48→08:10)
[2018-01-12] MEDS: CYCLOBENZAPRINE HCL 10 MG TAB PO SCH (05:42)
[2018-01-12] MEDS: SODIUM CHLOR 0.9% 1000 ML INJ 1,000 ML IV SCH (05:42)
[2018-01-12] MEDS: IBUPROFEN 600 MG TAB PO SCH (05:42)
[2018-01-12 06:11] LABS: AUTOMATED NEUTROPHIL # 1.3 TH/MM3 (1.8-7.7); BASOPHIL % 0.5 % (0.0-2.0); EOSINOPHIL # 0.1 TH/MM3 (0-0.4); EOSINOPHIL % 1.9 % (0.0-4.0); HEMOGLOBIN 15.4 GM/DL (13.0-17.0); LYMPH % 59.7 % (9.0-44.0); LYMPHOCYTE # 2.8 TH/MM3 (1.0-4.8); MEAN CELL VOLUME 90.5 FL (80.0-100.0); MEAN CORPUSCULAR HEMOGLOBIN 30.4 PG (27.0-34.0); MEAN CORPUSCULAR HGB CONC 33.5 % (32.0-36.0); MEAN PLATELET VOLUME 9.2 FL (7.0-11.0); MONO % 11.4 % (0.0-8.0); MONOCYTE # 0.5 TH/MM3 (0-0.9); NEUT % 26.5 % (16.0-70.0); PLATELET COUNT 197 TH/MM3 (150-450); RED BLOOD COUNT 5.08 MIL/MM3 (4.50-5.90); RED CELL DISTRIBUTION WIDTH 13.9 % (11.6-17.2); WHITE BLOOD COUNT 4.7 TH/MM3 (4.0-11.0)
[2018-01-12 06:36] LABS: ALBUMIN 3.7 GM/DL (3.4-5.0); ALT (GPT) 29 U/L (12-78); AST (GOT) 18 U/L (15-37); BICARBONATE 27.9 MEQ/L (21.0-32.0); BLOOD UREA NITROGEN 14 MG/DL (7-18); CALCIUM 9.1 MG/DL (8.5-10.1); CHLORIDE 104 MEQ/L (98-107); CREATININE 1.24 MG/DL (0.60-1.30); GLOMERULAR FILTRATION RATE 76 ML/MIN (>89); GLUCOSE,RANDOM 111 MG/DL (74-106); MAGNESIUM 2.1 MG/DL (1.5-2.5); PHOSPHORUS 4.1 MG/DL (2.5-4.9); SODIUM (NA) 140 MEQ/L (136-145)
[2018-01-12 06:38] LABS: ALKALINE PHOSPHATASE 85 U/L (45-117); TOTAL BILIRUBIN ADULT 0.3 MG/DL (0.2-1.0)
--- NOTE | 2018-01-12 07:44 | HHI.PR ---
Subjective Remarks still wi th lyle and now chest pressure Objective Vital Signs Date Time Temp Pulse Resp B/P (MAP) Pulse Ox O2 Delivery O2 Flow Rate FiO2 01/12/18 04:34 97.8 83 16 106/56 (73) 96 01/12/18 00:03 96.9 86 18 147/87 (107) 95 01/11/18 20:00 98.7 73 16 137/73 (94) 97 134/79 (97) 141/85 (103) 01/11/18 16:23 64 136/85 (102) 140/96 (111) 01/11/18 16:22 98.2 72 18 120/78 (92) 97 01/11/18 12:30 97.9 78 18 126/74 (91) 95 134/86 (102) 155/93 (113) 01/11/18 08:32 65 129/83 (98) 139/91 (107) 01/11/18 08:30 97.9 67 18 118/77 (91) 96 01/11/18 08:10 57 I/O 01/11/18 01/11/18 01/11/18 01/12/18 01/12/18 01/12/18 07:00 15:00 23:00 07:00 15:00 23:00 Output Total 1300 ml Balance -1300 ml Output Urine Total 1300 ml # Voids 2 Result Diagram: 01/12/18 0533 01/12/18 0533 Objective Remarks awake alert moves all well speech ok Assessment and Plan Assessment and Plan imp bp stand not low too high actually eeg nl mri neg crp and esr nl b12 shot ? statin but cpk inc optho pend ok dc and fu dr mijares if optho clears 01/12/18 seems depressed notify med team of chest pressurealthough cleared by cards topamax for lyle and inc cymbalta ok dc neurowise Rory Sanchez MD Jan 12, 2018 07:44
[2018-01-12] MEDS: guaiFENesin E.R. 600 MG TAB PO SCH (08:14)
[2018-01-12] MEDS: PANTOPRAZOLE SOD 40 MG DELAYED RELEASE TAB PO SCH (08:15)
[2018-01-12] MEDS: CETIRIZINE HCL 10 MG TAB PO SCH (08:15)
[2018-01-12] MEDS: SODIUM CHLORIDE 0.9% FLUSH 10 ML FLUSH IV FLUSH SCH (08:15)
[2018-01-12] MEDS: BUDESONIDE-FORMOTEROL 160/4.5 MCG INHALER INH SCH (08:16)
[2018-01-12] MEDS: CYANOCOBALAMIN 1000 MCG/ML VIAL SQ SCH (08:16)
[2018-01-12] MEDS ORDERED: DULoxetine HCl DR 30 MG CAP PO SCH (09:00)
[2018-01-12] MEDS ORDERED: HYDROCHLOROTHIAZIDE 12.5 MG CAP PO SCH (09:00)
[2018-01-12] MEDS ORDERED: DULO1CAP2 PO (11:12)
[2018-01-12] MEDS ORDERED: B-122000 PO (11:12)
[2018-01-12] MEDS ORDERED: TOPI25 PO (11:12)
[2018-01-12] MEDS ORDERED: HYDR12.57 PO (11:12)
[2018-01-12] MEDS ORDERED: NORC5TAB PO (11:13)
[2018-01-12] MEDS ORDERED: SUMA100T2 PO (11:17)
--- NOTE | 2018-01-12 11:21 | HHI.DCPOC ---
Discharge Care Plan Diagnosis: (1) Musculoskeletal chest pain (2) Hyperlipidemia (3) Seizure disorder (4) COPD (chronic obstructive pulmonary disease) (5) Episode of hypertension (6) Cephalgia Goals to Promote Your Health * To prevent worsening of your condition and complications * To maintain your health at the optimal level Directions to Meet Your Goals Take your medications as prescribed Follow your dietary instruction Follow activity as directed Keep your appointments as scheduled Take your immunizations and boosters as scheduled If your symptoms worsen call your PCP, if no PCP go to Urgent Care Center or Emergency Room Smoking is Dangerous to Your Health. Avoid second hand smoke Call the 24-hour hour crisis hotline for domestic abuse at Iggy Medel MD Jan 12, 2018 11:21
--- NOTE | 2018-01-12 11:39 | HHI.DS ---
Discharge Summary Admission Date Jan 10, 2018 at 06:08 Discharge Date: Jan 12, 2018 Admitting Diagnosis Chest pain, headache (1) Cephalgia ICD Code: R51 - Headache Diagnosis: Principal Status: Acute (2) Seizure disorder ICD Code: G40.909 - Epilepsy, unspecified, not intractable, without status epilepticus Diagnosis: Principal Status: Chronic (3) Elevated CPK ICD Code: R74.8 - Abnormal levels of other serum enzymes Diagnosis: Principal Status: Chronic (4) COPD (chronic obstructive pulmonary disease) ICD Code: J44.9 - Chronic obstructive pulmonary disease, unspecified Diagnosis: Principal Status: Chronic (5) Hyperlipidemia ICD Code: E78.5 - Hyperlipidemia, unspecified Status: Acute (6) Epistaxis ICD Code: R04.0 - Epistaxis Diagnosis: Principal Status: Resolved (7) Episode of hypertension ICD Code: I10 - Essential (primary) hypertension Diagnosis: Principal Status: Resolved (8) Musculoskeletal chest pain ICD Code: R07.89 - Other chest pain Diagnosis: Principal (9) Primary open angle glaucoma (POAG) of both eyes ICD Code: H40.1130 - Primary open-angle glaucoma, bilateral, stage unspecified Diagnosis: Principal Status: Chronic Procedures none Brief History - From Admission This is a pleasant 47 y/o Male with history of Seizure disorder, who was admitted due to Chest pain, atypical followed by community outreach specialist Doctor Daisy, he will follow Stress test but his chest pain is reproducible, left parasternal chest pain, for the last two days, also complaint of headache, History of Migraines as a child. the Headache is been there for the last 2 to 3 days. As per patient started with Chest pain, on left parasternal area, no radiated, 8 /10 in intensity, as Oppressive sensation, then minutes later started with Headache on Left parietal and temporal area, as pulsatile sensation, 10/10 in intensity, non associated nausea and vomit but before coming to er Had one episode of absence Seizure, epistaxis and dizziness. he was seen in the past by Neurology specialist Doctor Daniel. CBC/BMP: 01/12/18 0533 01/12/18 0533 Significant Findings Laboratory Tests Test 01/10/18 03:14 01/10/18 03:20 01/10/18 05:00 01/10/18 08:20 Estimat Glomerular Filtration Rate 83 ML/MIN (>89) Total Creatine Kinase 697 U/L (39-308) 570 U/L (39-308) Creatine Kinase MB 8.3 NG/ML (0.5-3.6) 6.9 NG/ML (0.5-3.6) Troponin I LESS THAN 0.02 NG/ML LESS THAN 0.02 NG/ML Salicylates Level LESS THAN 1.7 MG/DL Acetaminophen Level LESS THAN 2.0 MCG/ML Lymphocytes (%) (Auto) 58.6 % (9.0-44.0) Monocytes (%) (Auto) 10.8 % (0.0-8.0) Neutrophils # (Auto) 1.3 TH/MM3 (1.8-7.7) Urine Ketones 10 mg/dL (NEG) Test 01/10/18 11:08 01/10/18 19:38 01/11/18 07:35 01/12/18 05:33 Total Creatine Kinase 538 U/L (39-308) 362 U/L (39-308) 362 U/L (39-308) Creatine Kinase MB 6.5 NG/ML (0.5-3.6) Troponin I LESS THAN 0.02 NG/ML Cholesterol Level 203 MG/DL (120-200) LDL Cholesterol 137 MG/DL (0-99) Folate GREATER THAN 20.0 NG/ML Lymphocytes (%) (Auto) 59.7 % (9.0-44.0) Monocytes (%) (Auto) 11.4 % (0.0-8.0) Neutrophils # (Auto) 1.3 TH/MM3 (1.8-7.7) Random Glucose 111 MG/DL (74-106) Estimat Glomerular Filtration Rate 76 ML/MIN (>89) Imaging Last Impressions Brain MRI 01/10/18 1532 Signed Impressions: Service Date/Time: Wednesday, January 10, 2018 16:59 - CONCLUSION: 1. Negative MRI of the brain with and without contrast. Carlton Uriarte MD Head CT 01/10/18 6310 Signed Impressions: Service Date/Time: Wednesday, January 10, 2018 03:22 - CONCLUSION: No acute intracranial findings. Rudy Palafox MD Chest X-Ray 01/10/18 0314 Signed Impressions: Service Date/Time: Wednesday, January 10, 2018 03:30 - CONCLUSION: No acute cardiopulmonary disease identified. Rudy Palafox MD PE at Discharge GENERAL: Well-developed, well-nourished, no acute distress. SKIN: Focused skin assessment warm/dry. No rash. HEAD: Atraumatic. Normocephalic. EYES: Pupils equal and round. No scleral icterus. No injection or drainage. ENT: No nasal bleeding or discharge. Mucous membranes pink and moist. NECK: Trachea midline. No JVD. No nuchal rigidity. CARDIOVASCULAR: Regular rate and rhythm. reproducible exquisite pain on palpation on left parasternal area. RESPIRATORY: No accessory muscle use. Clear to auscultation. Breath sounds equal bilaterally. GASTROINTESTINAL: Abdomen soft, non-tender, nondistended. MUSCULOSKELETAL: No obvious deformities. No clubbing. No cyanosis. No edema. There is tenderness to palpation of the chest in the substernal region and both right and left anterior chest. There are no fluid collections palpated. NEUROLOGICAL: Awake and alert. No obvious cranial nerve deficits. Motor grossly within normal limits. Normal speech. No focal deficits. PSYCHIATRIC: Appropriate mood and affect; insight and judgment normal. Pt update on day of discharge The patient complained of chest pain and pressure in the morning. EKG was ordered and it showed normal sinus rhythm without ST-T changes. As per RN the patient states he had small nosebleed which resolved spontaneously. He did not state he had any nosebleeds when I saw him prior to discharge. Hospital Course Patient was placed on observation in the observation unit. Monitor on telemetry. Urology was consulted. Cardiac enzymes negative 3. EKG shows sinus rhythm without ST-T changes. Chest pain likely muscular musculoskeletal as per cardiology. Chest x-ray was negative. The patient also complains of headache. CT of the head did not show any acute intracranial findings. Neurology was consulted. Recommended ophthalmology evaluation for eye pressure monitoring. The patient was seen by Dr. Sheppard from ophthalmology who stated eye pressures were normal. Pain control provided with ibuprofen, Cymbalta [place]. Imitrex was given a trial for suspected migraine headaches. Patient states he noticed some improvement of his headache. Patient also noted to have elevated CPK which upon review of medical records has been elevated since 2016. The patient was treated with IV fluids and the CPK trended down to 362. Patient also had COPD which is chronic and remained stable. Patient was treated with duo nebs and Mucinex ER. Patient has hyperlipidemia a lipid profile showed an elevated total cholesterol and LDL of 137. The patient will possibly benefit from a statin, however CPK has been chronically elevated. Will defer to primary care physician to decide on starting statin since CPK will need to be monitored as well as LFTs. Patient also had brief episode of epistaxis which was self-limited and resolved on its own. Coagulation studies were normal with a PT of 10.7, INR 1.1 and PTT of 27.4. Patient also had episodic history of hypertension for which the patient was started on hydrochlorothiazide after with the blood pressure stabilized. Patient was recommended with PCP. Ophthalmology recommended continuation of brimonidine drops twice daily OU. And follow-up with licensed veterinary technician as an outpatient. Pt Condition on Discharge: Stable Discharge Disposition: Discharge Home Discharge Time: > 30 minutes Discharge Instructions DIET: Follow Instructions for: As Tolerated, No Restrictions Activities you can perform: Regular-No Restrictions Follow up Referrals: Neurology - 2 Weeks with Yoandy Acosta MD PCP Follow-up - 1 Week New Medications: Cyanocobalamin (B-12) 2,000 Mcg Tab 2000 MCG PO DAILY for Nutritional Supplement, #1 BOTTLE 0 Refills Hydrocodone-Acetaminophen ([place]) 5 Mg-325 Mg Tab 1 TAB PO Q4H PRN for PAIN, #15 TAB 0 Refills Sumatriptan (Sumatriptan) 100 Mg Tab 100 MG PO ONCE PRN for MIGRAINE HEADACHE, #10 TAB 0 Refills If a satisfactory response has not been obtained at 2 hours, a second dose may be administered Duloxetine (Duloxetine DR) 30 Mg Capdr 30 MG PO BID for Headaches, #62 CAP Hydrochlorothiazide (Hydrochlorothiazide) 12.5 Mg Cap 12.5 MG PO DAILY for Blood Pressure Management, #31 CAP Topiramate (Topamax) 25 Mg Tab 25 MG PO HS for Headaches, #31 TAB Continued Medications: Albuterol 18 GM Inh (Ventolin Hfa 18 GM Inh) 90 Mcg/Act Aer 2 PUFF INH Q4-6H PRN for SHORTNESS OF BREATH, #1 INHALER 0 Refills Albuterol 8.5 GM Inh (Proair Hfa 8.5 GM Inh) 90 Mcg/Act Aer 2 PUFF INH Q4-6H PRN for SHORTNESS OF BREATH, #1 INHALER 0 Refills 108 mcg/actuation Albuterol Neb (Albuterol Neb) 2.5 Mg/3 Ml Neb 2.5 MG NEB QID NEB for Breathing Treatment, #120 NEBULE 0 Refills Budesonide-Formoterol Inh (Symbicort Inh) 160-4.5 Mcg/Act Aero 1 PUFF INH Q12HR, #1 INHALER 0 Refills Cetirizine (Cetirizine) 10 Mg Tab 10 MG PO DAILY for Allergies, TAB 0 Refills Ipratropium Neb (Ipratropium Neb) 0.5 Mg/2.5 Ml Amp 0.5 MG NEB Q6HR NEB PRN for SHORTNESS OF BREATH, #120 NEBULE 0 Refills Iggy Medel MD Jan 12, 2018 11:39
--- NOTE | 2018-01-12 16:52 | EKG ---
Date Performed: 01/12/2018 Time Performed: 09:40:26 PTAGE: 47 years EKG: Sinus rhythm Since the previous tracing, no significant change noted NORMAL ECG PREVIOUS TRACING : 01/10/2018 08.28 DOCTOR: Jaguar Hoff Interpretating Date/Time 01/12/2018 16:50:17
[2018-01-12] MEDS ORDERED: TOPIRAMATE 25 MG TAB PO SCH (21:00)
== END 2018-01-12 13:45 | disposition home or self-care (01) ==
LOC: NEPC 02:28 → NEDA 06:08 → NEDH 09:15 → NEPGCP 11:02
PROVIDERS: ADMIT Hospitalist; ATTEND Hospitalist
DX: R07.89 Other chest pain (principal); E78.5 Hyperlipidemia, unspecified; G40.909 Epilepsy, unspecified, not intractable, without status epilepticus; J44.9 Chronic obstructive pulmonary disease, unspecified; I10 Essential (primary) hypertension; R04.0 Epistaxis; R51 Headache; E78.00 Pure hypercholesterolemia, unspecified; E11.9 Type 2 diabetes mellitus without complications; R74.8 Abnormal levels of other serum enzymes; H40.1130 Primary open-angle glaucoma, bilateral, stage unspecified; R42 Dizziness and giddiness; J40 Bronchitis, not specified as acute or chronic; R94.31 Abnormal electrocardiogram [ECG] [EKG]
CPT/HCPCS: 70450; 70553; 71045; 80053; 80061; 80307; 81001; 82140; 82550; 82552; 82607; 82746; 83036; 83735; 84100; 84443; 84484; 85025; 85610; 85652; 85730; 86140; 93005; 94150; 94640; 94664; 95819; 96361; 96372; 96374; 96375; 99285; A9579; G0378; J1885; J2765; J3420; J7030